=== PATIENT | male | born 1965 | race Caucasian/White ===

== ENCOUNTER 2020-04-08 11:19 | Outpatient (CLI) | payer MEDICARE, SELFPAY ==
[2020-04-09 15:48] LABS: Alpha 1 Antitrypsin 116 mg/dL (83-199)
== END 2020-04-08 11:20 | disposition home or self-care (01) ==
LOC: LAB 11:22
PROVIDERS: PCP Family Medicine; Visit Provider Internal Medicine Critical Care Medicine
DX: J45.909 Unspecified asthma, uncomplicated (principal)
CPT/HCPCS: 82103

== ENCOUNTER → 2021-03-26 17:38 | Outpatient (BNVA) | payer MEDICARE, SELFPAY | PROVIDERS: PCP Family Medicine; Visit Provider Registered Nurse Neonatal Intensive Care | DX: Z20.822 Contact with and (suspected) exposure to COVID-19 (principal) | CPT/HCPCS: 87635 ==

== ENCOUNTER → 2021-06-03 12:38 | Outpatient (BNVA) | payer MEDICARE, SELFPAY | PROVIDERS: PCP Family Medicine; Visit Provider Family Medicine Adult Medicine | DX: J11.1 Influenza due to unidentified influenza virus with other respiratory manifestations (principal) | CPT/HCPCS: 87400 ==

== ENCOUNTER 2021-11-11 08:28 | Inpatient (IN) | payer MEDICARE, SELFPAY ==
[2021-11-11] VITALS (44 sets, daily range): BP systolic 124–180; BP diastolic 42–108; PULSE 60–75; RESP 12–24; TEMP 36.6; O2SAT 93–97; BMI 59.3
--- NOTE | 2021-11-11 08:35 | CT_ITS ---
WS: [id number] CT HEAD TECHNIQUE: Noncontrast CT of the head obtained from the skullbase to the vertex. CLINICAL INFORMATION: Symptoms of Acute Stroke COMPARISON: None. DLP: 1012.[address] scans at [facility] use at least one of these dose optimization techniques: automated e xposure control; mA and/or kV adjustment per patient size (includes targeted exams where dose is matc hed to clinical indication); or iterative reconstruction. FINDINGS: No evidence of intracranial hemorrhage or mass effect. Ventricular system and basal cisterns are loredo nt. Subtle low-attenuation changes with loss of the normal carter-white differentiation in the LEFT pos terior temporal lobe and parietal occipital junction. This can be further evaluated with MRI. Evidenc e of chronic encephalomalacia in the inferior RIGHT cerebellum has a chronic appearance but new from 2012. Mastoid air cells well aerated. Mild mucosal thickening in the ethmoid air cells. Secretions in the L EFT maxillary sinus. Calcified osteoma LEFT frontal sinus. CT/CT head wo con* [id number] IMPRESSION: 1. No evidence of intracranial hemorrhage 2. Low-attenuation with loss of the normal carter-white differentiation in the L EFT posterior temporal and parietal occipital junction suspicious for acute to subacute ischemia. This can be further evaluated with MRI. 3. Mild mucosal thickening in the ethmoid air cells. Secretions in the LEFT ma xillary sinus. Notified Kalyan Payan DO at 11/11/2021 8:56 AM.
--- NOTE | 2021-11-11 08:35 | ECG_ITS ---
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 Measurements Intervals [place] Rate: 74 P: 60 MT: 158 QRS: -69 QRSD: 167 T: 82 QT: 487 QTc: 541 Interpretive Statements ELECTRONIC VENTRICULAR PACEMAKER ABNORMAL RHYTHM ECG No previous ECG available for comparison Electronically Signed On 11-11-2021 16:29:05 CDT by Arturo Howrad M.D. [id number]
--- NOTE | 2021-11-11 08:37 | ED_ITS ---
HPI - Neuro Symptoms/Deficit General: Chief Complaint: Neuro Symptoms/Deficit Stated Complaint: possible stroke Time Seen by Provider: 11/11/21 08:31 Source: patient Mode of arrival: ambulatory History of Present Illness: 56-year-old male arrives via EMS. When he first came in the room began talking patient became apparent quite quickly he was having a stroke stroke alert was called. According to EMS he was with his family this morning and then at 7:00 he suddenly be began to not be able to make sensible responses to simple questions. On arrival here he has expressive and receptive aphasia. He also has appears to have little bit of visual field deficit he does not have any particular weakness to his arms or legs however he is not able to follow commands well he does not understand commands as given to him he only commands they could get him to understand were to raise his leg lower extremities for me later he began to understand and speak better but his initial NIH score is 9. Time: 08:28 Last Observed Normal: 07:00 Timing confirmed by: family member Location: speech History of same: No Severity: severe Relieving factors: none Exacerbating factors: none Context: sudden onset On Anticoagulants: No Associated symptoms: Deny chest pain, cough, diaphoresis, fevers/chills, headache(s), anorexia, nausea, seizures, short of breath, syncope, tingling, vertigo, vomiting or weakness Review of Systems General: Reports: Other (Limited review of systems due to patient's condition) Const: Denies: diaphoresis Card: Denies: chest pain or syncope GI: Denies: nausea or vomiting Neuro: Denies: headache(s) or vertigo PFS ED PFSH: Medical History Cardiomyopathy CHF (congestive heart failure) COPD (chronic obstructive pulmonary disease) Enlarged prostate Fibromyalgia GERD (gastroesophageal reflux disease) Nausea and vomiting Obesity CONNIE (obstructive sleep apnea) Pacemaker Viral syndrome Surgical History H/O hernia repair History of biopsy of temporal artery History of skin surgery History of sleeve gastrectomy History of throat surgery History of tonsillectomy and adenoidectomy Family History Mother CAD (coronary artery disease) Father CAD (coronary artery disease) Other Zkpcp-[id number] deficiency Social History Smoking and tobacco status: current some day smoker Quit status (tobacco): has quit using tobacco Year quit tobacco: 2012 - 2PPD x 30 Years Former quit date comment: Used a non-og vape from 2012 - 2019 Second hand smoke exposure: Yes Alcohol intake: never Lives independently: Yes Household members: spouse Marital status: Current occupational status: disabled History of recent travel: No Current gender identity: Male NIH stroke score NIHSS: Level Of Consciousness - 1a: 0 Level Of Consciousness Questions - 1b: Neither Correct Level Of Consciousness Commands - 1c: One Correct Best Gaze - 2: Normal Visual Garrido - 3: Partial Hemianopia Facial Palsy - 4: Normal Motor Arm Right - 5: No Drift Motor Arm Left - 5: No Drift Motor Leg Right - 6: No Drift Motor Leg Left - 6: No Drift Limb Ataxia - 7: Absent Sensory - 8: Normal Best Language - 9: Severe Aphasia Dysarthia - 10: Mild/Moderate Dysarthia Extinction And Inattention - 11: 2 Score: Total Score: 9 Physical Exam Const: GENERAL APPEARANCE: cooperative and comfortable HENMT: COMMON NORMALS: normocephalic and atraumatic HEAD & SCALP: normoc ephalic and atraumatic Eye: COMMON NORMALS: Equal, round and reactive pupils present, conjunctivae normal and no scleral icterus CONJUNCTIVA: Yes conjunctivae normal PUPIL: Yes Equal, round and reactive pupils present Neck/C-Spine: COMMON NORMALS: full ROM, no lymphadenopathy, supple and no JVD Resp: COMMON NORMALS: normal respiratory effort, No retractions, No use of accessory muscles and clear to auscultation bilaterally AUSCULTATION: clear to auscultation bilaterally Cardio: COMMON NORMALS: no JVD, regular rate, regular rhythm and No murmurs present (Cardio) RATE: regular rate RHYTHM: regular rhythm GI: COMMON NORMALS: Soft to palpation and No hepatosplenomegaly present AUSCULTATION: Yes normoactive bowel sounds PALPATION: Yes Soft to palpation, No Tenderness to palpation present (GI), No Guarding due to palpation present (GI) and Yes No hepatosplenomegaly present Extremity: COMMON NORMALS: normal to inspection, capillary refill normal, no clubbing, cyanosis or edema, no calf tenderness and no pedal edema Neuro: OTHER: Expressive and receptive aphasia with a right visual field deficit Skin: COMMON NORMALS: no rashes or lesions noted GENERAL SKIN EXAM: no rashes or lesions noted Course Vital Signs: Vital signs: Vital Signs Temperature 97.9 F 11/11/21 08:43 Pulse Rate 60 11/11/21 14:19 Respiratory Rate 17 11/11/21 14:19 Blood Pressure 166/87 11/11/21 14:19 Pulse Oximetry 96 11/11/21 14:00 Oxygen Delivery Me thod 11/11/21 14:00 MDM - Neuro Symptoms/Deficit Medical Decision Making On arrival initial brief exam became apparent patient was having CVA. Stroke alert was called and he was rushed to the CT scanner Dr. Jackson responded immediately and assisted in his care. I initially tested him and had a stroke score of 9 Dr. Jackson a stroke score of 7 he did have a little bit of variation from pre and post CT scan which I think accounts for varying scores. We both agreed he should proceed with tPA. Shortly after we had begun the tPA family arrived they were in agreement as well patient also indicated a send to treatment. Patient does have a pacemaker so is unable to get an MRI we will get a CTA hospitalist has ordered that. Orders are written for admission to the ICU. Medical Records I reviewed the patient's medical records. Lab Data I reviewed the patient's lab results. : 11/11/21 08:46 11/11/21 08:[address] 11/11/21 08:35 IMPRESSION: 1. No evidence of intracranial hemorrhage 2. Low-attenuation with loss of the normal carter-white differentiation in the LEFT posterior temporal and parietal occipital junction suspicious for acute to subacute ischemia. This can be further evaluated with MRI. 3. Mild mucosal thickening in the ethmoid air cells. Secretions in the LEFT maxillary sinus. Notified Kalyan Payan DO at 11/11/2021 8:56 AM. Chest X-Ray 11/11/21 09:10 IMPRESSION: No acute cardiopulmonary abnormality. Head/Neck CTA 11/11/21 10:59 IMPRESSION: Exam is somewhat limited due to beam hardening artifact from body habitus. 1. No significant ICA stenosis bilaterally. 2. Both vertebral arteries are patent. 3. Basilar artery is patent. Normal vascularity to the FINGERPRINT CLASSIFIER territory bilaterally. 4. Normal vascularity to the TAMIE and MCA territories bilaterally. No evidence of proximal flow limiting stenosis. 5. Stable area of subtle low-attenuation LEFT posterior temporal lobe appears unchanged suspicious for subacute ischemia but nonspecific. Recommend interval follow-up to assess for change. Slightly decreased vascularity in this area. 6. Evidence of chronic infarct in the RIGHT inferior cerebellum with encephalomalacia. 7. No other suspicious findings. Laboratory Results WBC 10.0 10^3/uL (4.0-10.0) 11/11/21 08:46 RBC 5.50 10^6/uL (4.1-5.3) H 11/11/21 08:46 Hgb 15.3 g/dL (11.7-16.6) 11/11/21 08:46 Hct 49.0 % (42.0-52.0) 11/11/21 08:46 MCV 89.1 fl (80-94) 11/11/21 08:46 MCH 27.8 pg (28.0-34.0) L 11/11/21 08:46 MCHC 31.2 g/dL (30.0-36.0) 11/11/21 08:46 RDW 14.0 % (12.1-15.1) 11/11/21 08:46 Plt Count 267 10^3/cmm (130-400) 11/11/21 08:46 MPV 9.7 fL (7.4-10.4) 11/11/21 08:46 Neut % (Auto) 68.1 % 11/11/21 08:46 Lymph % (Auto) 20.4 % 11/11/21 08:46 Platte % (Auto) 9.4 % 11/11/21 08:46 Eos % (Auto) 1.2 % 11/11/21 08:46 Baso % (Auto) 0.5 % 11/11/21 08:46 Neut # (Auto) 6.82 10^3/uL (1.8-7.7) 11/11/21 08:46 Lymph # (Auto) 2.0 10^3/uL (0.8-4.8) 11/11/21 08:46 Platte # (Auto) 0.9 10^3/uL (0.2-0.9) 11/11/21 08:46 Eos # (Auto) 0.1 10^3/uL (0.0-0.8) 11/11/21 08:46 Baso # (Auto) 0.1 10^3/uL (0.0-0.1) 11/11/21 08:46 Nucleated RBC % (auto) 0 % 11/11/21 08:46 Nucleated RBCs # 0.0 /100WBC 11/11/21 08:46 PT 13.20 SECONDS (12.1-14.9) 11/11/21 08:46 INR 0.97 (0.8-1.2) 11/11/21 08:46 APTT 31.4 SECONDS (23.9-36.7) 11/11/21 08:46 Sodium 138 mmol/L (136-145) 11/11/21 08:46 Potassium 3.8 mmol/L (3.5-5.1) 11/11/21 08:46 Chloride 101 mmol/L (98-107) 11/11/21 08:46 Carbon Dioxide 29 mmol/L (22-29) 11/11/21 08:46 Anion Gap 11.8 (5-19) 11/11/21 08:46 BUN 7 mg/dL (6-20) 11/11/21 08:46 Creatinine 0.7 mg/dL (0.7-1.2) 11/11/21 08:46 GFR Calculation 117.5 mL/min (90-130) 11/11/21 08:46 Glucose 69 mg/dL (65-115) 11/11/21 08:46 POC Glucose 72 mg/dL (70-110) 11/11/21 08:46 Calculated Osmolality 282 mOsm/kg (285-295) L 11/11/21 08:46 Calcium 9.0 mg/dL (8.5-10.5) 11/11/21 08:46 Total Bilirubin 0.5 mg/dL (0.15-1.2) 11/11/21 08:46 AST 15 U/L (0-40) 11/11/21 08:46 ALT 16 U/L (0-41) 11/11/21 08:46 Alkaline Phosphatase 112 U/L (40-130) 11/11/21 08:46 Total Protein 7.3 g/dL (6.6-8.7) 11/11/21 08:46 Albumin 3.9 g/dL (3.5-5.2) 11/11/21 08:46 Globulin 3.4 g/dL (1.3-4.6) 11/11/21 08:46 TSH 1.90 uIU/mL (0.27-4.20) 11/11/21 08:46 Urine Color Yellow (Yellow) 11/11/21 09:00 Urine Appearance Clear (CLEAR) 11/11/21 09:00 Urine pH 6.5 (5-7) 11/11/21 09:00 Ur Specific Aiken 1.010 (1.005-1.030) 11/11/21 09:00 Urine Protein Neg (Negative) 11/11/21 09:00 Urine Glucose (UA) Norm (Normal) 11/11/21 09:00 Urine Ketones Negative (Negative) 11/11/21 09:00 Urine Blood Neg (Negative) 11/11/21 09:00 Urine Nitrate Negative (Negative) 11/11/21 09:00 Urine Bilirubin Neg (Negative) 11/11/21 09:00 Urine Urobilinogen Norm mg/dL (Negative) 11/11/21 09:00 Ur Leukocyte Esterase Negative (Negative) 11/11/21 09:00 Urine Opiates Screen Negative ng/mL (Negative) 11/11/21 09:00 Ur Barbiturates Screen Negative ng/mL (Negative) 11/11/21 09:00 Ur Phencyclidine Scrn Negative ng/mL (Negative) 11/11/21 09:00 Ur Amphetamines Screen Negative ng/mL (Negative) 11/11/21 09:00 Phenobarbital 2.4 ug/mL (10-30) L 11/11/21 08:46 U Benzodiazepines Scrn Negative ng/mL (Negative) 11/11/21 09:00 Urine Cocaine Screen Negative ng/mL (Negative) 11/11/21 09:00 U Marijuana (THC) Screen Negative ng/mL (Negative) 11/11/21 09:00 Discharge Plan Discharge Patient Disposition: Admitted As Inpatient Admit Provider: Elo Obrien Clinical Impression: CVA (cerebral vascular accident), Left middle cerebral artery stroke, CONNIE (obstructive sleep apnea), Cardiomyopathy Condition: Stable Coding Level of Care Code ED Molded Goods Operator for Chg Lelo
[2021-11-11 08:50] LABS: Glucose Point of Care 72 mg/dL (70-110)
[2021-11-11 09:00] LABS: Basophils # 0.1 10^3/uL (0.0-0.1); Basophils % 0.5 %; Eosinophils # 0.1 10^3/uL (0.0-0.8); Eosinophils % 1.2 %; Hemoglobin 15.3 g/dL (11.7-16.6); Lymphocytes % 20.4 %; Mean Corpuscular HGB Conc 31.2 g/dL (30.0-36.0); Mean Corpuscular Hemoglobin 27.8 pg (28.0-34.0); Mean Corpuscular Volume 89.1 fl (80-94); Mean Platelet Volume 9.7 fL (7.4-10.4); Monocytes # 0.9 10^3/uL (0.2-0.9); Monocytes % 9.4 %; Neutrophils # 6.82 10^3/uL (1.8-7.7); Neutrophils % 68.1 %; Nucleated Red Blood Cells % 0 %; Platelet Count 267 10^3/cmm (130-400)
--- NOTE | 2021-11-11 09:10 | XRR_ITS ---
PROCEDURE INFORMATION: Exam: XR Chest Exam date and time: 11/11/2021 9:14 AM Age: 56 years old Clinical indication: Other: Stroke like symptoms; Additional info: CVA TECHNIQUE: Imaging protocol: Radiologic exam of the chest. Views: 1 view. COMPARISON: CT chest w con* [id number] 04/21/2015 1:20 PM FINDINGS: Tubes, catheters and devices: Cardiac rhythm maintenance device is in place. Lungs: Unremarkable. No consolidation. Pleural spaces: Unremarkable. No pleural effusion. No pneumothorax. Heart/Mediastinum: Cardiomegaly Bones/joints: Unremarkable. XR/XR chest 1V portable [id number] IMPRESSION: No acute cardiopulmonary abnormality.
[2021-11-11 09:13] LABS: INR 0.97 (0.8-1.2)
[2021-11-11 09:14] LABS: Partial Thromboplastin Time 31.4 SECONDS (23.9-36.7)
[2021-11-11 09:15] LABS: Alanine Aminotransferase 16 U/L (0-41); Albumin Level 3.9 g/dL (3.5-5.2); Alkaline Phosphatase 112 U/L (40-130); Anion Gap 11.8 (5-19); Aspartate Amino Transferase 15 U/L (0-40); Blood Urea Nitrogen 7 mg/dL (6-20); Carbon Dioxide 29 mmol/L (22-29); Chloride 101 mmol/L (98-107); Globulin 3.4 g/dL (1.3-4.6); Glomerular Filtration Rate 117.5 mL/min (90-130); Glucose 69 mg/dL (65-115); Osmolality Calculated 282 mOsm/kg (285-295); Potassium 3.8 mmol/L (3.5-5.1); Sodium 138 mmol/L (136-145); Total Bilirubin 0.5 mg/dL (0.15-1.2); Total Protein 7.3 g/dL (6.6-8.7)
[2021-11-11 09:41] LABS: Add Urine Microscopic? NO; Charge for UA Resulting for Rev
--- NOTE | 2021-11-11 10:12 | P.HP_ITS ---
Providers/Chief Complaint Admitting Physician: Joel Obrien MD Primary Care Provider: Gabby Pickens DO Chief Complaint: possible stroke History of Present Illness Gabriel Blair is a 56 year old male who presents to the emergency department, with strokelike symptoms. Apparently he was dropping his son off, at his work when he had acute onset of aphasia/word salad. reports he also had some issues with his right upper extremity, seemingly clumsy with it. They called EMS immediately, and headed to the emergency department. At the emergency department a stroke alert was initiated, and the emergency department physician and neurologist responded promptly, determining he was a tPA candidate. Initial NIHSS stroke scale was 9. tPA was initiated following CT scan demonstrating no hemorrhage. Patient currently reports he feels like he is doing better. Family reports his speech is smoother but he is still having some issues with receptive language. He states he has a very mild headache but no nausea. Family reports that recently he had been seen by his primary care provider and taken off [facility], as he was tired, weak, and had a significantly low blood pressure. They report he has not had a past history of atrial fibrillation. They report he has never had coronary stenting. It is unclear from the family why he has cardiomyopathy, but they report his EF is 10% and he has had a pacemaker defibrillator placed in the past. He has had no recent fevers. However, he also recently got some amoxicillin and nystatin secondary to possibility of infection with his weakness he saw his primary care provider for. History is obtained from the patient, who is somewhat limited in his ability to give it as well as his and son. There was some concern the patient was on phenobarbital as this was in his bag of medicines. However, upon looking at the bottle it is for his dog and he does not take it personally. Review of Systems General: Reports: 10 or more systems reviewed and unremarkable except in HPI and below Const: Reports: fatigue; Denies: fever(s) or chills Eyes: Denies: change in vision ENMT: Denies: throat pain Card: Denies: chest pain Resp: Denies: dyspnea GI: Denies: abdominal pain, nausea, vomiting, hematemesis, hematochezia or melena : Denies: flank pain Musc: Denies: neck pain Skin/Breast: Denies: rash Neuro: Reports: headache(s), lack of coordination and difficulty communicating thoughts Psych: Denies: anxiety or depression Endo: Denies: polyuria Christopher/Lymph: Denies: easy bruising All/Imm: Denies: urticaria Medications/Allergies Home Medications Medication Instructions Recorded Confirmed Last Taken Type amlodipine 5 mg tablet 5 mg PO DAILY 06/12/19 09/22/21 Unknown History cetirizine 10 mg capsule (Zyrtec) 10 mg PO DAILY 06/12/19 09/22/21 Unknown History famotidine 40 mg tablet 40 mg PO DAILY 06/12/19 09/22/21 Unknown History fluticasone fur. 100 mcg-umeclid 1 inh inhalation DAILY 06/12/19 09/22/21 Unknown History 62.5 mcg-vilant 25 mcg inhalat.powder (Trelegy Ellipta) montelukast 10 mg tablet 10 mg PO DAILY 06/12/19 09/22/21 Unknown History (Singulair) pregabalin 100 mg capsule (Lyrica) 100 mg PO BID 06/12/19 09/22/21 Unknown History sertraline 25 mg tablet 25 mg PO DAILY 06/12/19 09/22/21 Unknown History carvedilol 12.5 mg tablet (Coreg) 25 mg PO BID 03/26/21 09/22/21 Unknown History furosemide 40 mg tablet (Lasix) 40 mg PO DAILY PRN edema 09/22/21 09/22/21 Unknown History ondansetron HCl 8 mg tablet 8 mg PO Q8H PRN nausea and 09/22/21 09/22/21 Unknown Rx vomiting #10 tabs pantoprazole 40 mg tablet,delayed 40 mg PO DAILY acid reflux #30 tabs 09/22/21 09/22/21 Unknown Rx release potassium chloride PO PRN 09/22/21 09/22/21 Unknown History sacubitril 49 mg-valsartan 51 mg 1 tab PO BID 09/22/21 09/22/21 Unknown History tablet (Entresto) Allergies Allergy/AdvReac Type Severity Reaction Status Date / Time No Known Allergies Allergy Verified 09/22/21 08:57 PFSH Acute PFSH: Medical History Cardiomyopathy CHF (congestive heart failure) COPD (chronic obstructive pulmonary disease) Enlarged prostate Fibromyalgia GERD (gastroesophageal reflux disease) Nausea and vomiting Obesity CONNIE (obstructive sleep apnea) Pacemaker Viral syndrome Surgical History H/O hernia repair History of biopsy of temporal artery History of skin surgery History of sleeve gastrectomy History of throat surgery History of tonsillectomy and adenoidectomy Family History Mother CAD (coronary artery disease) Father CAD (coronary artery disease) Other Vfnxb-7-olleebhxvla deficiency Social History Smoking and tobacco status: current some day smoker Quit status (tobacco): has quit using tobacco Year quit tobacco: 2012 - 2PPD x 30 Years Former quit date comment: Used a non-og vape from 2012 - 2019 Second hand smoke exposure: Yes Alcohol intake: never Lives independently: Yes Household members: spouse Marital status: Current occupational status: disabled History of recent travel: No Current gender identity: Male Vitals/I&O/Wt Last Vital Signs Temp 97.9 F 11/11/21 08:43 Pulse 64 11/11/21 10:00 Resp 16 11/11/21 10:00 BP 139/88 11/11/21 10:00 Pulse Ox 95 11/11/21 10:00 O2 Del Method 11/11/21 08:51 Weight last 48 hrs Weight 209.56 kg Physical Exam Narrative: General exam is a morbidly obese white male, who has some issues with receptive language but is able to talk in full sentences. HEENT: Atraumatic and normocephalic. Pupils equally round. Previous cataract surgery/lens replacement is noted. Oropharynx is clear. Neck is supple no lymphadenopathy or thyromegaly Cardiovascular regular rate and rhythm, no murmur, heart sounds distant Lungs clear to auscultation bilaterally. No wheezes or crackles Abdomen is soft, positive bowel sounds. Obese. No obvious organomegaly but exam limited. Umbilical hernia is noted, with some scabbing. No evidence of cellulitis or current infection. exams deferred Extremities no cyanosis clubbing. Trace edema is noted. Skin see findings under abdomen Neuro: Currently some issues with receptive language. Speech is smoother without slurring according to family. Does not appear to have any neglect. Difficult to elicit any focal weakness from side to side. NIHSS score of 9 on arrival to the emergency department. I did not get him up to ambulate him. There was concern about a small visual field deficit on previous exam, but it is hard for me to appreciate currently. Data : 11/11/21 08:46 11/11/21 08:46 Other Labs: Chest x-ray demonstrates pacemaker, no infiltrate EKG demonstrates a ventricularly paced rhythm Head CT demonstrates no bleed. Low-attenuation area left posterior temporal and parietal occipital junction suspicious for acute/subacute ischemia. INR 0.97 LFTs within normal limits Calcium 9.0 Urinalysis pending Phenobarbital level 2.4 A&P Assessment and plan (1) CVA (cerebral vascular accident): Patient presents with CVA, within the tPA window. He received tPA and symptomatology is improving. Admission to ICU MRI with MRI will not be possible secondary to his pacemaker. We will clarify with neurology whether CTA of head and neck should be obtained, or just carotid ultrasound. As he has received tPA, no aspirin/antiplatelet agents or anticoagulants today. Consider initiation of aspirin and/or Plavix tomorrow Permissive hypertension. Hold medicines currently. If blood pressure exceeds guidelines post tPA(180/105) nurse to call physician, urine labetalol. If needed consider nicardipine drip Lipitor 40 mg daily Therapy consultations Pacemaker investigation for arrhythmia Check echocardiogram Telemetry IV fluids 50 cc an hour. Lower rate secondary to severe cardiomyopathy report ed. Status: Acute (2) Cardiomyopathy: Patient's family reports significant cardiomyopathy with EF of 10%. It does not sound like he has had to have any stenting, and it is unclear if this is ischemic cardiomyopathy or not. Request records from trading analyst in [place] Pacemaker investigation Echocardiogram In face of acute CVA status post tPA will need to hold his Entresto, carvedilol currently. Try to restart when appropriate. Status: Acute (3) Small airways disease: DuoNeb as needed Status: Acute Plan Umbilical hernia. No evidence of incarceration on exam. Multiple other medical problems as outlined in past medical history Full code SCDs, DVT pharmacologic contraindicated currently as he just received tPA. After 24 hours will likely initiate. Attestations Medical Necessity Statement*: Will need greater than 2 midnight stay for evaluation and treatment of CVA with tPA with need for ICU care Coding Level of Care Code Acute Electronic Parts Designer for Chg Fwd Diagnoses CVA (cerebral vascular accident) I63.9 Cardiomyopathy I42.9 Small airways disease J98.4
--- NOTE | 2021-11-11 10:19 | USCV_ITS ---
Gabriel Blair Age: 56 Gender: M : 1965 Exam Date: 11/11/2021 10:41 Ordering Phys: Joel Obrien MD Technologist: Jimmy Barriga Exam Location: [facility] [place] Indication: Cardiomyopathy BP: / HR: 59 Rhythm: Sinus Technical Quality: Very technically difficult study MEASUREMENTS (Male / Female) Normal Values 2D ECHO LV Ejection Fraction MOD 2C 57.0 % LV Ejection Fraction 2C AL 57.2 % DOPPLER AV Peak Velocity 130.0 cm/s LVOT Peak Velocity 78.0 cm/s MV Area PHT 5.0 cm squared Mitral E to A Ratio 1.2 MV E' Velocity 94.0 cm/s TR Peak Velocity 209.0 cm/s TR Peak Gradient 17.5 mmHg TV Peak E Velocity 69.0 cm/s Right Atrial Pressure 3.0 mmHg Pulmonary Artery Systolic Pressu 20.5 mmHg FINDINGS Left Ventricle Probably moderate decreased left ventricle systolic function. Left ventricular ejection fraction visually estimated at about 40%. Right Ventricle Right ventricle not well visualized. Right Atrium Right atrium not well visualized. Left Atrium Left atrium not well visualized. Mitral Valve Mitral valve not well visualized. Aortic Valve Aortic valve not well visualized. No aortic valve stenosis. Tricuspid Valve Tricuspid valve not well visualized. Pulmonic Valve Pulmonic valve not well visualized. Pericardium No pericardial effusion. Aorta Aorta not well visualized. IVC Inferior vena cava not visualized. CONCLUSIONS 1. This is a technically difficult study inspite of Optison. 2. Probably moderate decreased left ventricle systolic function. Left ventricular ejection fraction visually estimated at about 40%. 3. Comparison to previous study dated 08/21/2013, is not possible. Rajani Ireladn MD (Electronically Signed) Final Date: 11 November 2021 15:59 S
[2021-11-11] MEDS: sodium chloride 0.9% 1,000 ML 100 ML IV (10:26)
[2021-11-11 10:33] LABS: Bilirubin Urine Neg (Negative); Blood Urine Neg (Negative); Glucose Urine UA Norm (Normal); Ketones Urine Negative (Negative); Leukocyte Esterase Urine Negative (Negative); Nitrate Urine Negative (Negative); Protein Urine Neg (Negative); Urine Appearance Clear (CLEAR); Urine Color Yellow (Yellow); Urobilinogen Urine Norm (Negative); pH Urine 6.5 (5-7)
--- NOTE | 2021-11-11 10:39 | P.PNCC_ITS ---
Stroke Alert Activation ED Arrival Date: 11/11/21 ED Arrival Time: 08:28 ED Physican at Bedside: 08:28 Last Known Normal/at Baseline: 1-2 hours ago Other Last Known Well Infomation: [facility] picked up this 56-year-old man at his home. They found him in the truck where his had called 911 when she witnessed sudden onset of change in speech and profound confusion. They arrived to find him globally aphasic. They could not find any focal weakness. They called dispatch and asked dispatch to alert the stroke team, which did not occur. They arrived unannounced at the emergency department at 08 34 and the patient was rushed to CAT scan at the same time that stroke alert was activated. I arrived as the patient was pulling out of CAT scan and while they were wheeling him to room 10 I interviewed the EMS and learned that they spoke directly with the patient's and that she had witnessed onset of symptoms. She was in the truck with the patient when they arrived to pick him up. He has no previous history of stroke and was not on any blood thinners. His blood pressure was 173/94.On examination he had mixed aphasia, receptive worse than expressive. He had a right visual field cut. He had no other focal findings. No significant deficit and there were no contraindications to tPA. I did my best to express to him that we were treating him with a clot Buster and he received a bolus at 09 51, 17 minutes after arrival. The patient's arrived and I discussed with her the cause of stroke. We went over the stroke booklet and I showed her the location on the brain and the artery involved and took time to answer questions. Dr. Payan and I shared in the care of the patient from arrival until bolus. Stroke Alert Activated by: at the door Stroke Alert Activation Time: 08:34 Stroke MD @ Bedside Time: 08:40 NIH stroke score NIHSS: Level Of Consciousness - 1a: 0 Level Of Consciousness Questions - 1b: Neither Correct Level Of Consciousness Commands - 1c: One Correct Best Gaze - 2: Normal Visual Garrido - 3: Complete Hemianopia Facial Palsy - 4: Normal Motor Arm Right - 5: No Drift Motor Arm Left - 5: No Drift Motor Leg Right - 6: No Drift Motor Leg Left - 6: No Drift Limb Ataxia - 7: Absent Sensory - 8: Normal Best Language - 9: Severe Aphasia Dysarthia - 10: Normal Extinction And Inattention - 11: 0 Score: Total Score: 7 Stroke Alert Data/Treatment CT Impression: His CT scan of the head was reviewed. There is a loss of carter- white differentiation in the posterior aspect of the left hemisphere conforming to the posterior branch of the left middle cerebral artery and likely related to acute ischemia. CT head: 1.? No evidence of intracranial hemorrhage 2.? Low-attenuation with loss of the normal carter-white differentiation in the LEFT posterior temporal and parietal occipital junction suspicious for acute to subacute ischemia. This can be further evaluated with MRI. 3.? Mild mucosal thickening in the ethmoid air cells. Secretions in the LEFT maxillary sinus. ? Notified Kalyan Payan DO at 11/11/2021 8:56 AM. ? Signed By: Navin Aguirre MD Signed Date/Time: 11/11/21 tPA Started Time: tPA Started - Time: 09:51 tPA Admin Prior to Arrival: No Patient & Family Educated on: Cause of Stroke, Risk Factors, Treament Plan, Stroke Education Booklet and tPA Risks/Benefits Critical Care Time Critical Care Time: 30 - 74 mins A&P Assessment and plan (1) Left middle cerebral artery stroke: Morbidly obese 56-year-old man with acute left middle cerebral artery stroke, posterior branch, with receptive greater than expressive aphasia and visual field cut consistent with a posterior branch left middle cerebral artery stroke. He has early changes of carter-white differentiation loss on CAT scan consistent with an acute stroke. His time of onset was witnessed. Admit to ICU. Plan on MRI tomorrow with MRA. Monitor for atrial fibrillation. Discussed with Dr. Fregoso and with Dr. Obrien. Status: Acute Coding Level of Care Code Acute Front Desk Administrator for Sue Lind Diagnoses Left middle cerebral artery stroke I63.512
[2021-11-11 10:41] LABS: Amphetamines Screen Urine Negative (Negative); Barbiturates Screen Urine Negative (Negative); Benzodiazepines Screen Urine Negative (Negative); Cocaine Screen Urine Negative (Negative); Opiate Screen Urine Negative (Negative); PCP Screen Urine Negative (Negative); THC Screen Urine Negative (Negative)
--- NOTE | 2021-11-11 10:59 | CT_ITS ---
WS: [id number] CTA HEAD AND NECK TECHNIQUE: Contrast enhanced CTA of the head and neck with coronal and sagittal reformatted images an d maximum intensity projection (MIP) images. NASCET criteria utilized. CLINICAL INFORMATION: CVA COMPARISON: CT November 11, 2021 DLP: 1222.[address] scans at [facility] use at least one of these dose optimization techniques: automated e xposure control; mA and/or kV adjustment per patient size (includes targeted exams where dose is matc hed to clinical indication); or iterative reconstruction. FINDINGS: Some images are degraded due to body habitus with beam hardening artifact. Venous contamina tion degrades some images. RIGHT: RIGHT common carotid artery is patent. Retropharyngeal course to the RIGHT distal common carot id artery and cervical ICA. No significant RIGHT ICA stenosis. RIGHT ICA is patent to the skull base. LEFT: LEFT common carotid artery is patent. No significant LEFT ICA stenosis. LEFT ICA is patent to t he skull base. Both vertebral arteries are patent. Proximal basilar artery is patent. Normal vascularity to the SUPERVISOR SAWMILL territory bilaterally. Both ICAs are patent at the skull base. Mild cavernous carotid calcification. Patent anterior communi cating artery. Normal vascularity to the TAMIE territory. Normal vascularity to the MCA territory bilat erally. Both M1 segments are patent. No evidence of flow-limiting proximal stenosis. Persistent subtle area of decreased attenuation in the LEFT posterior temporal lobe may represent sub acute ischemia but nonspecific. Slightly decreased vascularity in this area compared to the RIGHT mckayla e. Evidence of chronic infarcts in the RIGHT inferior cerebellum with encephalomalacia. Normal dural venous sinuses. CT/CT angio headneck* [id number] IMPRESSION: Exam is somewhat limited due to beam hardening artifact from body h abitus. 1. No significant ICA stenosis bilaterally. 2. Both vertebral arteries are patent. 3. Basilar artery is patent. Normal vascularity to the SUPERVISOR SAWMILL territory bilateral ly. 4. Normal vascularity to the TAMIE and MCA territories bilaterally. No evidence of proximal flow limiting stenosis. 5. Stable area of subtle low-attenuation LEFT posterior temporal lobe appears unchanged suspicious for subacute ischemia but nonspecific. Recommend interval follow-up to assess for change. Slightly decreased vascularity in this area. 6. Evidence of chronic infarct in the RIGHT inferior cerebellum with encephalo malacia. 7. No other suspicious findings.
[2021-11-11] MEDS: perflutren protein-a microsphr 0.22 mg/mL SDV 3 mL IV (11:01)
--- NOTE | 2021-11-11 11:51 | PC.PHAR ---
pts brought in pts medication bottles-pts states the amlodipine was put on hold 11/02/21-pts states the pt takes the lasix and kcl prn-lasix filled 10/21/21 40mg daily and kcl filled 10/21/21 20meq daily-amoxil 1000mg q8h filled 11/03/21 pts states pt is taking 1000mg bid and nystatin maría 5ml qid filled on 11/03/21 pts states pt takes 5ml bid-
--- NOTE | 2021-11-11 12:41 | PC.CHAP ---
Pastoral Care Encounter/Spiritual Assessment Type of Contact [] Declined jowl trimmer visit [] Patient/Family/Request visit [] Outpatient visit [] Follow-up visit [] Physician referral [] Code/Alert [x] Routine visit [] Staff referral [] Actively dying [] Patient sleeping [x] Family support [] [] Out of room [] Palliative care [] [] Receiving care in room [] Pre-surgical visit [] Trauma [] Long length of stay [x] ICU visit [] Other: Relational/Emotional Strength [] Patient feels connected with others/family/visitors/staff [] Distress [] Loneliness/isolation [] Abandonment Spirituality of Patient [] Person of Nahomy [] Attends Restoration of their Nahomy [] Believes in Prayer [] Reads Bible or Jehovah'S Witness materials [] There are Spiritual issues to be addressed Infection Prevention Practitioner Interventions [x] Prayer [] Active listening [] Non-anxious presence [] Spiritual/emotional support [] Crisis/trauma care [] Spiritual counseling [] Bereavement support [] Provided bereavement packet [] Provided Bible/devotional materials [] Provided toy/stuffed animal, coloring book to patient or family member [] Provided Communion [] Anointing/[place] [] Salvation [x] Completed spiritual assessment [] Other: Impact on Illness or Injury [] Angry [] Fearful [] Anxious [] Often cries [] Exhaustion [] Unable to work [] Unable to attend restoration [] Unable to walk/stand [] Unable to read [] Unable to drive [] Unable to eat/drink [] Unable to sleep [] Unable to be with family [] Patient intubated [] Other: Summary Time spent with patient
[2021-11-11] MEDS: iohexol 350 mg/mL 100 mL Btl IV (13:34)
[2021-11-11] MEDS: labetalol 5 mg/mL SDV 20mL 10 MG IVP (15:21)
[2021-11-11] MEDS: carvedilol 25 mg Tablet PO (17:39)
[2021-11-11] MEDS: pregabalin 50 mg Capsule PO (17:39)
[2021-11-11] MEDS: famotidine 20 mg Tablet PO (17:39)
[2021-11-11] MEDS: montelukast sodium 10 mg Tablet PO (21:58)
[2021-11-11] MEDS: atorvastatin 40 mg Tablet PO (21:58)
[2021-11-12] VITALS (56 sets, daily range): BP systolic 126–167; BP diastolic 59–97; PULSE 59–86; RESP 9–25; TEMP 36.5–36.6; O2SAT 87–97
[2021-11-12 05:37] LABS: Basophils # 0.1 10^3/uL (0.0-0.1); Basophils % 0.6 %; Eosinophils # 0.1 10^3/uL (0.0-0.8); Eosinophils % 0.9 %; Hematocrit 46.1 % (42.0-52.0); Hemoglobin 14.4 g/dL (11.7-16.6); Lymphocytes # 1.9 10^3/uL (0.8-4.8); Lymphocytes % 19.3 %; Mean Corpuscular HGB Conc 31.2 g/dL (30.0-36.0); Mean Corpuscular Hemoglobin 27.4 pg (28.0-34.0); Mean Corpuscular Volume 87.6 fl (80-94); Mean Platelet Volume 9.9 fL (7.4-10.4); Monocytes # 0.8 10^3/uL (0.2-0.9); Monocytes % 8.3 %; Neutrophils # 6.76 10^3/uL (1.8-7.7); Neutrophils % 70.5 %; Nucleated Red Blood Cells % 0 %; Platelet Count 264 10^3/cmm (130-400); Red Blood Count 5.26 10^6/uL (4.1-5.3); Red Cell Distribution Width 14.2 % (12.1-15.1); White Blood Count 9.6 10^3/uL (4.0-10.0)
[2021-11-12 05:59] LABS: Alanine Aminotransferase 13 U/L (0-41); Albumin Level 3.7 g/dL (3.5-5.2); Alkaline Phosphatase 104 U/L (40-130); Aspartate Amino Transferase 12 U/L (0-40); Blood Urea Nitrogen 8 mg/dL (6-20); Calcium 8.8 mg/dL (8.5-10.5); Carbon Dioxide 29 mmol/L (22-29); Chloride 102 mmol/L (98-107); Chol HDL Ratio 5.31 mg/dL (1.0-5.00); Cholesterol 154 mg/dL (0-200); Globulin 3.3 g/dL (1.3-4.6); Glomerular Filtration Rate 140.4 mL/min (90-130); Glucose 93 mg/dL (65-115); HDL Cholesterol 29 mg/dL (60-100); LDL Cholesterol Calculated 103 mg/dL (50-129); LDL HDL Ratio 3.55 RATIO (0.00-3.22); Osmolality Calculated 286 mOsm/kg (285-295); Sodium 139 mmol/L (136-145); Total Bilirubin 0.6 mg/dL (0.15-1.2); Triglycerides 110 mg/dL (0-150)
[2021-11-12 07:12] LABS: Estmated Average Glucose 123; Hemoglobin A1C 5.9 % (4.0-6.0)
--- NOTE | 2021-11-12 07:27 | PC.NURSE ---
Shift Note Frequent safety and comfort rounds continue. Orders and/or nursing care completed as indicated. Patient monitored for response to intervention and treatment(s). Education provided includes NIH stroke scale. Patient and verbalized understanding of teaching. Patient remains on 2LNC and is oriented to self, place and situation. He periodically remembers the month and date. No deficits noted to extremities, patient still has mild aphasia. No wounds or skin issues noted at this time. Will continue to monitor.
--- NOTE | 2021-11-12 08:19 | PM.PN ---
Subjective Subjective: Gabriel reports he is doing okay. reports his language seems little bit better. He is still aphasic enough he cannot tell me his name, but he can tell me his 's name. He denies any pain or shortness of breath. Medications: Reviewed: Yes Vitals/I&O/Wt Last Vital Signs Temp 97.9 F 11/12/21 02:00 Pulse 63 11/12/21 06:00 Resp 14 11/12/21 06:00 BP 166/97 11/12/21 04:00 Pulse Ox 95 11/12/21 03:20 O2 Del Method 11/11/21 20:00 O2 Flow Rate 2 11/11/21 20:00 11/11/21 11/12/21 11/12/21 22:59 06:59 14:59 Intake Total 360 / 460 650 / 1110 Output Total 400 / 700 550 / 1250 Balance -40 / -240 100 / -140 Weight last 48 hrs Weight 209.56 kg Physical Exam Narrative: General exam no distress Neuro: Moves all extremities equally. No facial droop. Still with some aphasia, although less receptive language deficits. Neurology still detects a visual field cut. Neck is supple no lymphadenopathy or thyromegaly Cardiovascular regular rate and rhythm, no murmur, heart sounds distant Lungs clear to auscultation bilaterally. No wheezes or crackles Abdomen is soft, positive bowel sounds. Obese. No obvious organomegaly Umbilical hernia is noted, with some scabbing. No evidence of cellulitis or current infection. Extremities no cyanosis clubbing. Trace edema is noted. Skin see findings under abdomen Data : 11/12/21 04:48 11/12/21 04:48 A&P Assessment and plan (1) CVA (cerebral vascular accident): Patient presents with CVA, within the tPA window. He received tPA 11/12 and symptomatology improved although did not completely resolve. CTA demonstrates no thrombus Awaiting repeat CT scan without contrast today for follow-up after tPA 24 hours after tPA initiate Plavix and aspirin Continue statin Rehabilitation services to see today Probably home tomorrow morning Hopefully can restart his cardiac medicine tonight. Pacemaker investigation for arrhythmia Echocardiogram demonstrates EF around 40%, difficult study, no obvious thrombus Telemetry Status: Acute (2) Cardiomyopathy: Patient's family reports significant cardiomyopathy with EF of 10%. It does not sound like he has had to have any stenting, and it is unclear if this is ischemic cardiomyopathy or not. 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 No evidence of incarceration on exam. Multiple other medical problems as outlined in past medical history Full code SCDs, DVT pharmacologic contraindicated currently as he just received tPA. After 24 hours will likely initiate. Attestations Medical Necessity Statement*: Needs continued hospitalization for initiation of rehabilitation services, close monitoring following CVA in which the patient received tPA. Coding Level of Care Code Acute Skilled Labor for Sue Lind Diagnoses CVA (cerebral vascular accident) I63.9 Cardiomyopathy I42.9 Small airways disease J98.4
[2021-11-12] MEDS: famotidine 20 mg Tablet PO ×2 (08:56→18:00)
[2021-11-12] MEDS: sacubitril/valsartan 24-26 mg Tablet 2 EACH PO ×2 (08:56→17:59)
[2021-11-12] MEDS: tamsulosin 0.4 mg Capsule PO (08:56)
[2021-11-12] MEDS: pregabalin 50 mg Capsule PO ×2 (08:56→18:00)
[2021-11-12] MEDS: sertraline 100 mg Tablet PO (08:56)
[2021-11-12] MEDS: carvedilol 25 mg Tablet PO ×2 (08:56→18:00)
--- NOTE | 2021-11-12 09:00 | CT_ITS ---
WS: [id number] CT HEAD TECHNIQUE: Noncontrast CT of the head obtained from the skullbase to the vertex. CLINICAL INFORMATION: follow up TPA, CVA COMPARISON: CT November 11, 2021 DLP: 2006.[address] scans at [facility] use at least one of these dose optimization techniques: automated e xposure control; mA and/or kV adjustment per patient size (includes targeted exams where dose is matc hed to clinical indication); or iterative reconstruction. FINDINGS: Previously described wedge-shaped area of suspected subacute ischemia is more apparent toda y compatible with subacute infarct. This involves the LEFT posterior parietal and posterior superior temporal lobes some of which is in a watershed distribution. Mild associated edema. Mild localized ma ss effect. No significant mass effect or midline shift. No intracranial hemorrhage. No hydrocephalus. Chronic infarct in the RIGHT inferior cerebellum with encephalomalacia. Small chron ic cortical infarct RIGHT frontal lobe laterally with a small amount of encephalomalacia. Mastoid air cells are well aerated. Mild mucosal thickening in the LEFT maxillary sinus the small amount of flui d. Mild mucosal thickening ethmoid air cells. Osteoma LEFT frontal sinus. Normal posterior nasopharyn x. CT/CT head wo con* [id number] IMPRESSION: 1. LEFT posterior parietal superotemporal lobe wedge-shaped infarct is more ap parent today compatible with subacute ischemia. Minimal associated localized ma ss effect. No midline shift or hydrocephalus. Infarct is in a watershed distrib ution. 2. No intracranial hemorrhage. 3. Chronic infarct in the RIGHT inferior cerebellum with encephalomalacia. 4. Small chronic cortical RIGHT frontal lobe laterally with a small amount of encephalomalacia. 5. Tiny chronic lacunar infarct RIGHT caudate. 6. No other significant changes.
[2021-11-12] MEDS: alum-mag-hydroxide-sime 30 mL UDC PO (10:23)
--- NOTE | 2021-11-12 15:19 | PC.NURSE ---
Report called to [facility] Man. Patient's notified of patient transfer. Patient transferred to room 254 bed 1.
[2021-11-12 20:41] LABS: Glucose Point of Care 99 mg/dL (70-110)
[2021-11-12] MEDS: montelukast sodium 10 mg Tablet PO (21:51)
[2021-11-12] MEDS: atorvastatin 40 mg Tablet PO (21:51)
[2021-11-13 00:52] VITALS: BP 157/88; PULSE 61; RESP 18; TEMP 36.8; O2SAT 94
[2021-11-13 06:00] VITALS: PULSE 60
[2021-11-13 06:26] LABS: Glucose Point of Care 99 mg/dL (70-110)
[2021-11-13 07:25] VITALS: BP 153/83; PULSE 60; RESP 17; TEMP 36.9; O2SAT 94
[2021-11-13] MEDS: pregabalin 50 mg Capsule PO (08:33)
[2021-11-13] MEDS: tamsulosin 0.4 mg Capsule PO (08:34)
[2021-11-13] MEDS: famotidine 20 mg Tablet PO (08:34)
[2021-11-13] MEDS: sertraline 100 mg Tablet PO (08:34)
[2021-11-13] MEDS: carvedilol 25 mg Tablet PO (08:34)
[2021-11-13 08:35] VITALS: PULSE 71; RESP 17; O2SAT 96
[2021-11-13] MEDS: sacubitril/valsartan 24-26 mg Tablet 2 EACH PO (08:36)
[2021-11-13] MEDS: clopidogrel 75 mg Tablet PO (09:34)
--- NOTE | 2021-11-13 09:34 | PM.DCS ---
Discharge Providers Date of Admission: 11/11/21 13:49 Date of Discharge: November 13, 2021 Attending Provider at Admission: Elo Obrien MD Attending Provider at Discharge: Joel Obrien MD Primary Care Provider: Gabby Pickens DO Diagnoses at Discharge Discharge Diagnosis (1) CVA (cerebral vascular accident): Status: Acute (2) Cardiomyopathy: Status: Acute (3) Small airways disease: Status: Acute Reason for Visit Reason for Visit: possible stroke Hospital Course Hospital Course Gabriel is a 56-year-old white male who presented to the hospital with aphasia, consistent with a stroke. He received tPA on November 12 with improvement of his symptoms. He initially went to the ICU. Repeat CT scan head demonstrated no bleed. CTA of head and neck demonstrated no flow-limiting stenosis. Pacemaker/defibrillator interrogation demonstrated no atrial fibrillation. Imaging was consistent with CVA, left posterior temporal and parietal occipital junction. Echocardiogram was performed which demonstrated an EF around 40%, improved from previous echo, with no obvious thrombus although it was a poor study. After appropriate interval of holding antiplatelets and anticoagulants following tPA he was initiated on aspirin at slightly over 24 hours, aspirin and Plavix at approximately 48 hours. As he was discharging Lovenox was not initiated on day of discharge as would typically have been done if he has been staying. All therapies were consulted, and it was determined he could benefit from speech therapy at home but had no need for physical therapy or occupational therapy. He will follow-up with neurology in 2 weeks, his primary care provider in 3 to 5 days. Patient and family's questions were answered, regarding the plan which they agreed with. Physical Exam Narrative: General exam no apparent distress Neurologic: Some aphasia noted but no focal weakness Neck is supple no lymphadenopathy thyromegaly Cardiovascular regular rate and rhythm without murmur Lungs clear Abdomen is soft with positive bowel sounds, hernia unchanged Extremities no cyanosis clubbing or edema Discharge Data Studies Completed and Pending Completed Studies During Hospitalization Category Date Time Status CT head wo con* [id number] Routine Cat Scan 11/12/21 09:[address] head wo con* [id number] Stat Cat Scan 11/11/21 08:35 Completed CTA head neck [CT angio headneck* [id number]] Stat Cat Scan 11/11/21 10:59 Completed XR chest 1V portable [id number] Stat Exams 11/11/21 09:10 Completed CV. echo wo/w contrast [id number] Routine Ultrasound 11/11/21 10:19 Completed Radiology Impressions Chest X-Ray 11/11/21 09:10 IMPRESSION: No acute cardiopulmonary abnormality. Head/Neck CTA 11/11/21 10:59 IMPRESSION: Exam is somewhat limited due to beam hardening artifact from body habitus. 1. No significant ICA stenosis bilaterally. 2. Both vertebral arteries are patent. 3. Basilar artery is patent. 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 4. Normal vascularity to the TAMIE and MCA territories bilaterally. No evidence of proximal flow limiting stenosis. 5. Stable area of subtle low-attenuation LEFT posterior temporal lobe appears unchanged suspicious for subacute ischemia but nonspecific. Recommend interval follow-up to assess for change. Slightly decreased vascularity in this area. 6. Evidence of chronic infarct in the RIGHT inferior cerebellum with encephalomalacia. 7. No other suspicious findings. Head CT 11/12/21 09:00 IMPRESSION: 1. LEFT posterior parietal superotemporal lobe wedge-shaped infarct is more apparent today compatible with subacute ischemia. Minimal associated localized mass effect. No midline shift or hydrocephalus. Infarct is in a watershed distribution. 2. No intracranial hemorrhage. 3. Chronic infarct in the RIGHT inferior cerebellum with encephalomalacia. 4. Small chronic cortical RIGHT frontal lobe laterally with a small amount of encephalomalacia. 5. Tiny chronic lacunar infarct RIGHT caudate. 6. No other significant changes. Laboratory Results WBC 9.6 10^3/uL (4.0-10.0) 11/12/21 04:48 RBC 5.26 10^6/uL (4.1-5.3) 11/12/21 04:48 Hgb 14.4 g/dL (11.7-16.6) 11/12/21 04:48 Hct 46.1 % (42.0-52.0) 11/12/21 04:48 MCV 87.6 fl (80-94) 11/12/21 04:48 MCH 27.4 pg (28.0-34.0) L 11/12/21 04:48 MCHC 31.2 g/dL (30.0-36.0) 11/12/21 04:48 RDW 14.2 % (12.1-15.1) 11/12/21 04:48 Plt Count 264 10^3/cmm (130-400) 11/12/21 04:48 MPV 9.9 fL (7.4-10.4) 11/12/21 04:48 Neut % (Auto) 70.5 % 11/12/21 04:48 Lymph % (Auto) 19.3 % 11/12/21 04:48 [place] % (Auto) 8.3 % 11/12/21 04:48 Eos % (Auto) 0.9 % 11/12/21 04:48 Baso % (Auto) 0.6 % 11/12/21 04:48 Neut # (Auto) 6.76 10^3/uL (1.8-7.7) 11/12/21 04:48 Lymph # (Auto) 1.9 10^3/uL (0.8-4.8) 11/12/21 04:48 [place] # (Auto) 0.8 10^3/uL (0.2-0.9) 11/12/21 04:48 Eos # (Auto) 0.1 10^3/uL (0.0-0.8) 11/12/21 04:48 Baso # (Auto) 0.1 10^3/uL (0.0-0.1) 11/12/21 04:48 Nucleated RBC % (auto) 0 % 11/12/21 04:48 Nucleated RBCs # 0.0 /100WBC 11/12/21 04:48 PT 13.20 SECONDS (12.1-14.9) 11/11/21 08:46 INR 0.97 (0.8-1.2) 11/11/21 08:46 APTT 31.4 SECONDS (23.9-36.7) 11/11/21 08:46 Sodium 139 mmol/L (136-145) 11/12/21 04:48 Potassium 4.0 mmol/L (3.5-5.1) 11/12/21 04:48 Chloride 102 mmol/L (98-107) 11/12/21 04:48 Carbon Dioxide 29 mmol/L (22-29) 11/12/21 04:48 Anion Gap 12.0 (5-19) 11/12/21 04:48 BUN 8 mg/dL (6-20) 11/12/21 04:48 Creatinine 0.6 mg/dL (0.7-1.2) L 08/25/22 04:48 GFR Calculation 140.4 mL/min (90-130) H 11/12/21 04:48 Glucose 93 mg/dL (65-115) 11/12/21 04:48 POC Glucose 99 mg/dL (70-110) 11/13/21 06:21 Estimat Average Glucose 123 11/12/21 04:48 Hemoglobin A1c 5.9 % (4.0-6.0) 11/12/21 04:48 Calculated Osmolality 286 mOsm/kg (285-295) 11/12/21 04:48 Calcium 8.8 mg/dL (8.5-10.5) 11/12/21 04:48 Total Bilirubin 0.6 mg/dL (0.15-1.2) 11/12/21 04:48 AST 12 U/L (0-40) 11/12/21 04:48 ALT 13 U/L (0-41) 11/12/21 04:48 Alkaline Phosphatase 104 U/L (40-130) 11/12/21 04:48 Total Protein 7.0 g/dL (6.6-8.7) 11/12/21 04:48 Albumin 3.7 g/dL (3.5-5.2) 11/12/21 04:48 Globulin 3.3 g/dL (1.3-4.6) 11/12/21 04:48 Triglycerides 110 mg/dL (0-150) 11/12/21 04:48 Cholesterol 154 mg/dL (0-200) 11/12/21 04:48 LDL Cholesterol, Calc 103 mg/dL (50-129) 11/12/21 04:48 HDL Cholesterol 29 mg/dL (60-100) L 11/12/21 04:48 LDL/HDL Ratio 3.55 RATIO (0.00-3.22) H 11/12/21 04:48 Cholesterol/HDL Ratio 5.31 mg/dL (1.0-5.00) H 11/12/21 04:48 TSH 1.90 uIU/mL (0.27-4.20) 11/11/21 08:46 Urine Color Yellow (Yellow) 11/11/21 09:00 Urine Appearance Clear (CLEAR) 11/11/21 09:00 Urine pH 6.5 (5-7) 11/11/21 09:00 Ur Specific [place] 1.010 (1.005-1.030) 11/11/21 09:00 Urine Protein Neg (Negative) 11/11/21 09:00 Urine Glucose (UA) Norm (Normal) 11/11/21 09:00 Urine Ketones Negative (Negative) 11/11/21 09:00 Urine Blood Neg (Negative) 11/11/21 09:00 Urine Nitrate Negative (Negative) 11/11/21 09:00 Urine Bilirubin Neg (Negative) 11/11/21 09:00 Urine Urobilinogen Norm mg/dL (Negative) 11/11/21 09:00 Ur Leukocyte Esterase Negative (Negative) 11/11/21 09:00 Urine Opiates Screen Negative ng/mL (Negative) 11/11/21 09:00 Ur Barbiturates Screen Negative ng/mL (Negative) 11/11/21 09:00 Ur Phencyclidine Scrn Negative ng/mL (Negative) 11/11/21 09:00 Ur Amphetamines Screen Negative ng/mL (Negative) 11/11/21 09:00 Phenobarbital 2.4 ug/mL (10-30) L 11/11/21 08:46 U Benzodiazepines Scrn Negative ng/mL (Negative) 11/11/21 09:00 Urine Cocaine Screen Negative ng/mL (Negative) 11/11/21 09:00 U Marijuana (THC) Screen Negative ng/mL (Negative) 11/11/21 09:00 Vitals Last Vital Signs Temp 98.4 F 11/13/21 07:25 Pulse 71 11/13/21 08:35 Resp 17 11/13/21 08:35 BP 153/83 11/13/21 07:25 Pulse Ox 96 11/13/21 08:35 O2 Del Method 11/13/21 08:35 O2 Flow Rate 2 11/12/21 08:36 Discharge Plan Discharge Patient Disposition: Home Health Service Condition: Stable Prescriptions: New Lyrica 50 mg Capsule 50 mg PO BID Qty: 60 0RF atorvastatin 40 mg Tablet 40 mg PO BEDTIME Qty: 30 0RF aspirin 325 mg Tablet,Delayed Release (Dr/Ec) 325 mg PO DAILY Qty: 30 0RF clopidogrel [Plavix] 75 mg tablet 75 mg PO DAILY Qty: 21 0RF Continued Trelegy Ellipta 100-62.5-25 mcg blister with device 1 inh INHALATION DAILY montelukast [Singulair] 10 mg tablet 10 mg PO BEDTIME furosemide [Lasix] 40 mg tablet 40 mg PO DAILY PRN (Reason: edema) Entresto 49-51 mg tablet 1 tab PO BID ondansetron HCl 8 mg tablet 8 mg PO Q8H PRN (Reason: nausea and vomiting) Qty: 10 0RF carvedilol 25 mg tablet 25 mg PO BID potassium chloride 10 mEq capsule, extended release 20 meq PO DAILY PRN (Reason: takes when takes lasix) sertraline 100 mg tablet 100 mg PO DAILY famotidine 20 mg tablet 20 mg PO BID Zyrtec 10 mg Tablet 10 mg PO DAILY tamsulosin 0.4 mg capsule 0.8 mg PO DAILY Discontinued amlodipine 10 mg tablet 10 mg PO DAILY pregabalin 150 mg capsule 150 mg PO BID nystatin 100,000 unit/mL suspension 5 ml PO BID amoxicillin 500 mg tablet 1,000 mg PO BID Discharge Orders: Discharge Order (Routine); Ordered 11/13/21 Ordered By: Joel Obrien Referrals: [facility] [Outside] Kanchan Jackson MD [Physician] - 2 weeks (follow up CVA) Gabby Pickens DO [Primary Care Provider] - 4-7 days Discharge Diet: Cardiac and Diabetic Discharge Activity: Increase activity as tolerated Patient Instructions: Opioid Safety Activity Restrictions/Additional Instructions: Take all medicine as prescribed. Plavix treatment should overlap with aspirin for 3 weeks, then Plavix will likely be discontinued. Ask your neurologist on follow-up. Notify primary care provider or come to the emergency department for any frequent nosebleeds, black or tarry stools, uncontrolled bleeding Follow-up with neurology 2 weeks, primary care provider 3 to 5 days Note that your dose of Lyrica has been reduced, Norvasc has been discontinued Discharge Attestations Time Spent in Discharge Care*: greater than 30 min Quality Metrics Clinical Quality Measures [ Cerebrovascular Accident { Contraindication to Antithrombotic: None; antithrombotic prescribed; Contraindication to Anticoagulation: Other (Not indicated); Contraindication to Statin: None; Statin prescribed; Reason stroke education not provided: Stroke education provided to patient;}] Coding Level of Care Code Acute Chg [facility] note Diagnoses CVA (cerebral vascular accident) I63.9 Cardiomyopathy I42.9 Small airways disease J98.4
[2021-11-13 11:19] VITALS: BP 148/73; PULSE 76; RESP 17; TEMP 36.8; O2SAT 98
== END 2021-11-13 12:49 | disposition home health service (06) | DRG 62 ==
LOC: ER 08:37 → ICUOP 12:03 → ICU 13:04 → MEDSURG 11-12 15:43
PROVIDERS: Admitting Provider Family Medicine; Emergency Provider Family Medicine; PCP Family Medicine; Visit Provider Internal Medicine
DX: I63.512 Cerebral infarction due to unspecified occlusion or stenosis of left middle cerebral artery (principal); I42.9 Cardiomyopathy, unspecified; I50.22 Chronic systolic (congestive) heart failure; Z68.43 Body mass index [BMI] 50.0-59.9, adult; H53.47 Heteronymous bilateral field defects; R47.01 Aphasia; R29.709 NIHSS score 9; Z95.810 Presence of automatic (implantable) cardiac defibrillator; J44.9 Chronic obstructive pulmonary disease, unspecified; N40.0 Benign prostatic hyperplasia without lower urinary tract symptoms; M79.7 Fibromyalgia; K21.9 Gastro-esophageal reflux disease without esophagitis; E66.01 Morbid (severe) obesity due to excess calories; G47.33 Obstructive sleep apnea (adult) (pediatric); Z98.84 Bariatric surgery status; Z87.891 Personal history of nicotine dependence; K42.9 Umbilical hernia without obstruction or gangrene
CPT/HCPCS: 36415; 36416; 70450; 70496; 70498; 71045; 80053; 80061; 80184; 80306; 81003; 82962; 83036; 84443; 85025; 85610; 85730; 92507; 92523; 92526; 92610; 93005; 93306; 94760; 96374; 97116; 97161; 97165; 99291; C8929; J2997; J3490; J7030; Q9956; Q9967

== ENCOUNTER → 2021-11-25 11:59 | Outpatient (BNVA) | payer MEDICARE, SELFPAY | PROVIDERS: PCP Family Medicine; Visit Provider Specialist | DX: I69.320 Aphasia following cerebral infarction (principal); I42.9 Cardiomyopathy, unspecified; F17.200 Nicotine dependence, unspecified, uncomplicated | CPT/HCPCS: 99205; 99215 ==

== ENCOUNTER → 2022-01-07 14:54 | Outpatient (BNVA) | payer MEDICARE, SELFPAY | PROVIDERS: PCP Family Medicine; Visit Provider Specialist | DX: I42.9 Cardiomyopathy, unspecified (principal); Z86.73 Personal history of transient ischemic attack (TIA), and cerebral infarction without residual deficits; G47.33 Obstructive sleep apnea (adult) (pediatric); Z87.891 Personal history of nicotine dependence | CPT/HCPCS: 99214; 99215 ==

== ENCOUNTER 2022-02-12 09:22 | Emergency (ER) | payer MEDICARE, SELFPAY ==
[2022-02-12 09:34] VITALS: BP 175/82; PULSE 81; RESP 17; TEMP 36.4; O2SAT 96; BMI 59.1
--- NOTE | 2022-02-12 09:38 | XRR_ITS ---
PROCEDURE INFORMATION: Exam: XR Chest Exam date and time: 02/12/2022 11:03 AM Age: 56 years old Clinical indication: Pain; Angina pectoris; Additional info: Chest pain TECHNIQUE: Imaging protocol: Radiologic exam of the chest. Views: 1 view. COMPARISON: CR XR chest 1V portable [id number] 11/11/2021 9:14 AM FINDINGS: Lungs: Unremarkable. No consolidation. Pleural spaces: Unremarkable. No pleural effusion. No pneumothorax. Heart/Mediastinum: Unremarkable. No cardiomegaly. Bones/joints: Unremarkable. Cardiac device left anterior chest in good position. Comparison to prior examination similar findings seen XR/XR chest 1V portable [id number] IMPRESSION: No acute findings. Cardiac device left anterior chest in good position.
[2022-02-12 09:39] VITALS: BP 175/129; PULSE 87; RESP 17; O2SAT 94
--- NOTE | 2022-02-12 09:44 | ECG_ITS ---
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 Measurements Intervals [place] Rate: 73 P: 16 MT: 94 QRS: -38 QRSD: 174 T: 136 QT: 455 QTc: 504 Interpretive Statements ELECTRONIC VENTRICULAR PACEMAKER Compared to ECG 11/11/2021 08:33:58 No significant changes Electronically Signed On 02-12-2022 11:09:21 PLASMA PROCESSOR by Kayode Garcia M.D. [id number]
[2022-02-12] MEDS: aspirin 81 mg Chew Tablet 324 MG PO (09:57)
[2022-02-12 10:07] LABS: Basophils # 0.1 10^3/uL (0.0-0.1); Basophils % 0.6 %; Eosinophils # 0.2 10^3/uL (0.0-0.8); Eosinophils % 1.7 %; Hematocrit 48.2 % (42.0-52.0); Hemoglobin 15.3 g/dL (11.7-16.6); Lymphocytes # 1.9 10^3/uL (0.8-4.8); Lymphocytes % 21.3 %; Mean Corpuscular HGB Conc 31.7 g/dL (30.0-36.0); Mean Corpuscular Hemoglobin 28.1 pg (28.0-34.0); Mean Corpuscular Volume 88.6 fl (80-94); Mean Platelet Volume 9.1 fL (7.4-10.4); Monocytes # 0.6 10^3/uL (0.2-0.9); Monocytes % 6.8 %; Neutrophils # 6.24 10^3/uL (1.8-7.7); Neutrophils % 69.3 %; Nucleated Red Blood Cells % 0 %; Platelet Count 272 10^3/cmm (130-400); Red Blood Count 5.44 10^6/uL (4.1-5.3); Red Cell Distribution Width 14.3 % (12.1-15.1)
--- NOTE | 2022-02-12 10:24 | PC.NURSE ---
PT PLACED ON CONTINUOUS NIBP, SPO2, AND CM
[2022-02-12 10:31] LABS: Troponin(5th) Baseline 14 ng/L (0-15)
[2022-02-12 10:34] LABS: Alanine Aminotransferase 14 U/L (0-41); Albumin Level 3.7 g/dL (3.5-5.2); Alkaline Phosphatase 135 U/L (40-130); Anion Gap 13.7 (5-19); Aspartate Amino Transferase 14 U/L (0-40); Blood Urea Nitrogen 8 mg/dL (6-20); Calcium 9.4 mg/dL (8.5-10.5); Carbon Dioxide 26 mmol/L (22-29); Chloride 100 mmol/L (98-107); Globulin 3.7 g/dL (1.3-4.6); Glomerular Filtration Rate 140.4 mL/min (90-130); Glucose 123 mg/dL (65-115); Osmolality Calculated 282 mOsm/kg (285-295); Potassium 3.7 mmol/L (3.5-5.1); Sodium 136 mmol/L (136-145); Total Bilirubin 0.5 mg/dL (0.15-1.2); Total Protein 7.4 g/dL (6.6-8.7)
[2022-02-12 10:39] VITALS: BP 142/89; PULSE 72; RESP 16; O2SAT 95
--- NOTE | 2022-02-12 10:40 | USCV_ITS ---
Gabriel Blair Age: 56 Gender: M : 1965 Exam Date: 02/12/2022 10:56 Ordering Phys: Kalyan Payan DO Technologist: Dede Price [place] [facility] [place]: Pain in Lt calf HISTORY: Pain in Lt calf PROCEDURES: Venous duplex imaging was performed in only the left lower extremity. The following venous structures were evaluated: common femoral vein, profunda vein, proximal portion of the greater saphenous vein, superficial femoral vein, and the popliteal vein. In addition, the posterior tibial and peroneal trunk were evaluated. Serial compression, augmentation maneuvers, and spectral Doppler flow evaluation were performed. The area of pain, directed by Pt was examined FINDINGS: Normal 2-D Doppler and augmentation and compressibility throughout the lower extremity venous structures. Additional imaging through the proximal calf veins also reveals no thrombus. Limited evaluation of the greater saphenous vein is patent with no thrombus. CONCLUSIONS No DVT left lower extremity. Dr. Felecia Lopez DO (Electronically Signed) Final Date: 12 February 2022 11:27 S
--- NOTE | 2022-02-12 10:40 | W.ED.CHESTPA ---
HPI - Chest Pain General: Chief Complaint: Chest Pain Stated Complaint: chest pain Time Seen by Provider: 02/12/22 09:34 Source: patient Mode of arrival: ambulatory History of Present Illness: 56-year-old male presents emergency room with complaint of chest pain. Patient began having chest pain this morning. Pain is on the left side does not radiate anywhere he has some sort of swelling in his lower extremities and also has some left calf pain has not had any particular shortness of breath. He has a known history of coronary disease and previous history of CVA requiring tPA. He is hypertensive on arrival here. He denies any difficulty with fever sweats chills or cough recently no recent upper respiratory infection. No abdominal pain. MD complaint: chest pain Pertinent past history: coronary artery disease Prior episodes: Yes Onset: during rest Pain location: left chest Pain radiation: none Severity: moderate Quality: aching and heaviness Relieving factors: nothing Exacerbating factors: nothing Associated symptoms: Reports leg edema; Deny abdominal pain, diaphoresis, dyspnea, fever(s), nausea, palpitations, sense of impending doom, syncope or vomiting Treatment prior to arrival: none Review of Systems Const: Denies: fever(s), chills, fatigue, malaise or diaphoresis ENMT: Denies: throat pain, ear or mastoid pain, nasal discharge or nasal congestion Card: Denies: palpitations or syncope Resp: Denies: dyspnea GI: Denies: abdominal pain, nausea or vomiting : Denies: flank pain, dysuria, urinary frequency or urinary urgency Skin/Breast: Denies: rash or pruritus PFS ED PFSH: Medical History Cardiomyopathy CHF (congestive heart failure) COPD (chronic obstructive pulmonary disease) Enlarged prostate Fibromyalgia GERD (gastroesophageal reflux disease) Nausea and vomiting Obesity CONNIE (obstructive sleep apnea) Pacemaker Viral syndrome Surgical History H/O hernia repair History of biopsy of temporal artery History of skin surgery History of sleeve gastrectomy History of throat surgery History of tonsillectomy and adenoidectomy Family History Mother CAD (coronary artery disease) Father CAD (coronary artery disease) Other Lepkm-[id number] deficiency Social History Smoking and tobacco status: former smoker Quit status (tobacco): has quit using tobacco Year quit tobacco: 2013 - 2PPD x 30 Years Former quit date comment: Used a non-og vape from 2012 - 2019 Second hand smoke exposure: Yes Alcohol intake: never Lives independently: Yes Household members: spouse Marital status: Current occupational status: disabled History of recent travel: No Current gender identity: Male Physical Exam Const: COMMON NORMALS: no acute distress GENERAL APPEARANCE: cooperative and comfortable NUTRITIONAL APPEARANCE: obese morbidly obese ORIENTATION/CONSCIOUSNESS: Yes awake, Yes oriented to person, Yes oriented to place and Yes oriented to time HENMT: COMMON NORMALS: normocephalic, atraumatic and hearing grossly normal bilaterally HEAD & SCALP: normocephalic and atraumatic Resp: COMMON NORMALS: normal respiratory effort, No retractions, No use of accessory muscles and clear to auscultation bilaterally AUSCULTATION: clear to auscultation bilaterally Cardio: COMMON NORMALS: regular rate, regular rhythm and No murmurs present (Cardio) RATE: regular rate RHYTHM: regular rhythm GI: COMMON NORMALS: Soft to palpation and No hepatosplenomegaly present AUSCULTATION: Yes normoactive bowel sounds PALPATION: Yes Soft to palpation, No Tenderness to palpation present (GI), No Guarding due to palpation present (GI) and Yes No hepatosplenomegaly present Extremity: COMMON NORMALS: normal to inspection, capillary refill normal, no clubbing, cyanosis or edema, no calf tenderness and no pedal edema Neuro: SENSORIUM/ORIENTATION: Yes oriented to person, Yes oriented to place and Yes oriented to time Skin: COMMON NORMALS: no rashes or lesions noted GENERAL SKIN EXAM: no rashes or lesions noted Course Vital Signs: Vital signs: Vital Signs Temperature 97.6 F 02/12/22 09:34 Pulse Rate 68 02/12/22 12:00 Respiratory Rate 14 02/12/22 12:00 Blood Pressure 161/104 02/12/22 12:00 Pulse Oximetry 96 02/12/22 12:00 Oxygen Delivery Me thod 02/12/22 09:34 MDM - Chest Pain Medical Decision Making Atypical chest pain negative cardiac enzymes no acute changes in EKG. We will start him isosorbide mononitrate for his blood pressure and for cardiac benefit we will also have him continue aspirin daily we will set up for outpatient stress testing return if is further pain. EKGs and troponins are unremarkable. Medical Records I reviewed the patient's medical records. Lab Data I reviewed the patient's lab results. 02/12/22 09:53 02/12/22 09:53 Radiology Impressions Chest X-Ray 02/12/22 09:38 IMPRESSION: No acute findings. Cardiac device left anterior chest in good position. Laboratory Results WBC 9.0 10^3/uL (4.0-10.0) 02/12/22 09:53 RBC 5.44 10^6/uL (4.1-5.3) H 02/12/22 09:53 Hgb 15.3 g/dL (11.7-16.6) 02/12/22 09:53 Hct 48.2 % (42.0-52.0) 02/12/22 09:53 MCV 88.6 fl (80-94) 02/12/22 09:53 MCH 28.1 pg (28.0-34.0) 02/12/22 09:53 MCHC 31.7 g/dL (30.0-36.0) 02/12/22 09:53 RDW 14.3 % (12.1-15.1) 02/12/22 09:53 Plt Count 272 10^3/cmm (130-400) 02/12/22 09:53 MPV 9.1 fL (7.4-10.4) 02/12/22 09:53 Neut % (Auto) 69.3 % 02/12/22 09:53 Lymph % (Auto) 21.3 % 02/12/22 09:53 [place] % (Auto) 6.8 % 02/12/22 09:53 Eos % (Auto) 1.7 % 02/12/22 09:53 Baso % (Auto) 0.6 % 02/12/22 09:53 Neut # (Auto) 6.24 10^3/uL (1.8-7.7) 02/12/22 09:53 Lymph # (Auto) 1.9 10^3/uL (0.8-4.8) 02/12/22 09:53 [place] # (Auto) 0.6 10^3/uL (0.2-0.9) 02/12/22 09:53 Eos # (Auto) 0.2 10^3/uL (0.0-0.8) 02/12/22 09:53 Baso # (Auto) 0.1 10^3/uL (0.0-0.1) 02/12/22 09:53 Nucleated RBC % (auto) 0 % 02/12/22 09:53 Nucleated RBCs # 0.0 /100WBC 02/12/22 09:53 Sodium 136 mmol/L (136-145) 02/12/22 09:53 Potassium 3.7 mmol/L (3.5-5.1) 02/12/22 09:53 Chloride 100 mmol/L (98-107) 02/12/22 09:53 Carbon Dioxide 26 mmol/L (22-29) 02/12/22 09:53 Anion Gap 13.7 (5-19) 02/12/22 09:53 BUN 8 mg/dL (6-20) 02/12/22 09:53 Creatinine 0.6 mg/dL (0.7-1.2) L 02/12/22 09:53 GFR Calculation 140.4 mL/min (90-130) H 02/12/22 09:53 Glucose 123 mg/dL (65-115) H 02/12/22 09:53 Calculated Osmolality 282 mOsm/kg (285-295) L 02/12/22 09:53 Calcium 9.4 mg/dL (8.5-10.5) 02/12/22 09:53 Total Bilirubin 0.5 mg/dL (0.15-1.2) 02/12/22 09:53 AST 14 U/L (0-40) 02/12/22 09:53 ALT 14 U/L (0-41) 02/12/22 09:53 Alkaline Phosphatase 135 U/L (40-130) H 02/12/22 09:53 Troponin T Baseline 14 ng/L (0-15) 02/12/22 09:53 Troponin T 120 Minute 15.23 ng/L (0-15) H 02/12/22 11:39 Delta Troponin T 1.23 ABS# (0-10) 02/12/22 11:39 Total Protein 7.4 g/dL (6.6-8.7) 02/12/22 09:53 Albumin 3.7 g/dL (3.5-5.2) 02/12/22 09:53 Globulin 3.7 g/dL (1.3-4.6) 02/12/22 09:53 Discharge Plan Discharge Patient Disposition: Home Clinical Impression: Atypical chest pain, Benign essential HTN Condition: Stable Prescriptions: New isosorbide mononitrate 30 mg tablet extended release 24 hr 30 mg PO DAILY Qty: 30 0RF No Action Trelegy Ellipta 100-62.5-25 mcg blister with device 1 inh INHALATION DAILY montelukast [Singulair] 10 mg tablet 10 mg PO BEDTIME furosemide [Lasix] 40 mg tablet 40 mg PO DAILY PRN (Reason: edema) Entresto 49-51 mg tablet 1 tab PO BID carvedilol 25 mg tablet 25 mg PO BID potassium chloride 10 mEq capsule, extended release 20 meq PO DAILY PRN (Reason: takes when takes lasix) sertraline 100 mg tablet 100 mg PO DAILY cetirizine [Zyrtec] 10 mg Tablet 10 mg PO DAILY tamsulosin 0.4 mg capsule 0.4 mg PO DAILY aspirin 325 mg Tablet,Delayed Release (Dr/Ec) 325 mg PO DAILY Qty: 30 0RF pregabalin [Lyrica] 50 mg Capsule 50 mg PO BID Qty: 60 0RF atorvastatin 40 mg tablet 40 mg PO BEDTIME amitriptyline 25 mg tablet 25 mg PO BEDTIME pantoprazole 40 mg tablet,delayed release (DR/EC) 40 mg PO DAILY Ventolin HFA 90 mcg/actuation Hfa Aerosol Inhaler 2 puff INHALATION QID PRN (Reason: Shortness Of Breath Or Wheezing) Discharge Orders: Discharge ED (Routine); Ordered 02/12/22 Ordered By: Kalyan Payan Referrals: Gabby Pickens DO [Primary Care Provider] - Patient Instructions: Opioid Safety, Pain Management Activity Restrictions/Additional Instructions: You were seen today for chest pain and the discomfort in your leg. EKGs and laboratory test did not show any signs of acute coronary event at this time. Ultrasound of your leg did not show any blood clot. Would recommend that you add isosorbide mononitrate 30 mg daily, and increase your pantoprazole to 1 pill twice daily for 14 days then resume once daily. Follow-up with your primary care doctor within the week to reevaluate your blood pressure. It was noted that your blood pressure was elevated at today's visit. The isosorbide mononitrate will lower the blood pressure and is protective of your heart. Stand Alone Forms: Work/School Release Coding Level of Care Code ED Lockstitch Back Maker for Sue Fwd Exam Detailed
[2022-02-12 11:00] VITALS: BP 154/70; PULSE 82; RESP 14; O2SAT 96
[2022-02-12 12:00] VITALS: BP 161/104; PULSE 68; RESP 14; O2SAT 96
[2022-02-12 12:04] LABS: Troponin 5 2HR 15.23 ng/L (0-15)
[2022-02-12 12:06] LABS: Troponin 5 2HR Delta 1.23 ABS# (0-10)
--- NOTE | 2022-02-19 15:40 | DCPLANNER ---
Addendum entered by Joselyn Ta 05/13/22 13:32: Patient has a stress test scheduled appointment was rescheduled to a later date. Addendum entered by Joselyn Ta 03/19/22 09:58: Patient has a stress test scheduled for Tuesday, April 21, 2022 at 9:45. Centralized scheduling will call patient with appointment information. Original Note: data science and iot manager had message to schedule an outpatient stress test for patient. data science and iot manager faxed signed order to centralized scheduling, who will call patient with appointment information.
== END 2022-02-12 12:38 | disposition home or self-care (01) ==
PROVIDERS: Emergency Provider Family Medicine; PCP Family Medicine
DX: R07.89 Other chest pain (principal); I10 Essential (primary) hypertension; E66.9 Obesity, unspecified; Z68.43 Body mass index [BMI] 50.0-59.9, adult; I50.9 Heart failure, unspecified; Z79.82 Long term (current) use of aspirin; Z95.0 Presence of cardiac pacemaker
CPT/HCPCS: 36415; 71045; 80053; 84484; 85025; 93005; 93971; 99285

== ENCOUNTER 2022-04-02 17:41 | Outpatient (CLI) | payer MEDICARE, SELFPAY ==
--- NOTE | 2022-04-02 17:53 | XR_ITS ---
WS: [id number] CHEST 2 VIEWS HISTORY: POST COVID SYMPTOMS COMPARISON: 02/12/2022 Lungs: RIGHT costophrenic angle is excluded from this examination. Lungs are mildly hyperexpanded. Di ffuse hazy opacifications over both lungs but greatest on the RIGHT. No dense areas of consolidation. Partial obscuration of the LEFT lung due to the cardiac battery pack. Cardiac size: Normal silhouette. Cardiac pacer/defibrillator via the LEFT subclavian. Mediastinum/Aorta: Mild widening of the mediastinum. Bones: As visualized are negative. XR/XR chest 2V* [id number] IMPRESSION: 1. RIGHT costophrenic angle is excluded from the examination. 2. Diffuse hazy opacifications. May be pneumonitis or mild pulmonary congestio n. 3. No dense consolidation.
== END 2022-04-02 17:42 | disposition home or self-care (01) ==
LOC: RAD 17:46
PROVIDERS: PCP Family Medicine; Visit Provider Nurse Practitioner Family
DX: U09.9 Post COVID-19 condition, unspecified (principal); R06.02 Shortness of breath; J41.8 Mixed simple and mucopurulent chronic bronchitis
CPT/HCPCS: 71046

== ENCOUNTER 2023-08-31 23:58 | Emergency (ER) | payer MEDICARE, SELFPAY ==
[2023-09-01] VITALS (7 sets, daily range): BP systolic 104–116; BP diastolic 61–85; PULSE 59–71; RESP 13–20; TEMP 36.7; O2SAT 94–97; BMI 57.7
--- NOTE | 2023-09-01 00:12 | ECG_ITS ---
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 Measurements Intervals [place] Rate: 66 P: 42 [place]: 200 QRS: 39 QRSD: 166 T: 268 QT: 499 QTc: 524 Interpretive Statements ELECTRONIC VENTRICULAR PACEMAKER ABNORMAL RHYTHM ECG Compared to ECG 02/12/2022 09:44:08 No significant changes Electronically Signed On 09-01-2023 21:57:08 CDT by Ji Gooden M.D. [id number]
--- NOTE | 2023-09-01 00:12 | XRR_ITS ---
PROCEDURE INFORMATION: Exam: XR Chest Exam date and time: 09/01/2023 12:21 AM Age: 57 years old Clinical indication: Shortness of breath; Prior surgery; Surgery date: 6+ months; Surgery type: Pacer; Additional info: Chf hypoxia TECHNIQUE: Imaging protocol: Radiologic exam of the chest. Views: 1 view. COMPARISON: CR XR chest 2V* [id number] 04/02/2022 5:55 PM FINDINGS: Tubes, catheters and devices: Stable left pacemaker. Lungs: Unremarkable. No consolidation. Pleural spaces: Unremarkable. No pleural effusion. No pneumothorax. Heart/Mediastinum: Unremarkable. No cardiomegaly. Bones/joints: Unremarkable. XR/XR chest 1V portable [id number] IMPRESSION: No acute findings.
--- NOTE | 2023-09-01 00:16 | ED_ITS ---
HPI - Altered Mental Status 2 General: Chief Complaint: Altered Mental Status Stated Complaint: AMS Time Seen by Provider: 09/01/23 00:11 History of Present Illness: Patient presents to the ER with complaints of just feeling weird. He states having difficulty focusing and having difficulty remembering words other knows he cannot narrow down. Patient is normally on 6 L of oxygen at all times and wears a CPAP at night. Patient denies any chest pain but does have a history of cardiomyopathy, denies nausea vomiting diarrhea constipation fever chills cough cold sore throats frequency pain burning with urination etc. Review of Systems 2 General: Reports: 10 or more systems reviewed and unremarkable except in HPI and below PFSH ED 2 PFSH: Medical History Nausea and vomiting GERD (gastroesophageal reflux disease) Viral syndrome Cardiomyopathy Pacemaker Obesity Fibromyalgia Enlarged prostate COPD (chronic obstructive pulmonary disease) CONNIE (obstructive sleep apnea) CHF (congestive heart failure) Surgical History History of tonsillectomy and adenoidectomy History of throat surgery H/O hernia repair History of sleeve gastrectomy History of biopsy of temporal artery History of skin surgery Family History Mother CAD (coronary artery disease) Father CAD (coronary artery disease) Other Trpsy-[id number] deficiency Social History Smoking and tobacco/nicotine status: former use of tobacco/nicotine Quit status (tobacco/nicotine): has quit using Year quit tobacco: 2012 - PD x 30 Years Former quit date comment: Used a non-og vape from 2012 - 2019 Second hand smoke exposure: Yes Alcohol intake: never Substance/Drug Use: never Lives independently: Yes Household members: spouse Marital status: Current occupational status: disabled Do you think of yourself as: Straight/Heterosexual Current gender identity: Male Physical Exam 2 Const: COMMON NORMALS: no acute distress, average body habitus, patient oriented x3, no limitations, healthy appearing, alert and well nourished HENMT: COMMON NORMALS: normocephalic, atraumatic, hearing grossly normal bilaterally, external ears normal, Normal external nose present, moist oral mucous membranes and oropharynx normal HEAD & SCALP: normocephalic and atraumatic NOSE: Normal external nose present EXTERNAL EAR: Yes external ears normal Eye: COMMON NORMALS: Equal, round and reactive pupils present, EOMs intact bilaterally, conjunctivae normal and no scleral icterus CONJUNCTIVA: Yes conjunctivae normal PUPIL: Yes Equal, round and reactive pupils present Neck/C-Spine: COMMON NORMALS: no JVD Chest: COMMONS NORMALS: normal inspection of the chest and normal palpation of entire chest wall Resp: COMMON NORMALS: normal respiratory effort, No retractions and No use of accessory muscles Cardio: COMMON NORMALS: no JVD, regular rate, regular rhythm, S1 normal heart sound present, S2 normal heart sound present, No gallops present (Cardio), No clicks present (Cardio), No murmurs present (Cardio) and No rub (Cardio) R ATE: regular rate RHYTHM: regular rhythm HEART SOUNDS: S1 normal heart sound present and S2 normal heart sound present GI: COMMON NORMALS: Normal to inspection, nondistended, normoactive bowel sounds present, Soft to palpation, non-tender, No hepatosplenomegaly present and no masses PALPATION: Yes Soft to palpation and Yes No hepatosplenomegaly present Neuro: COMMON NORMALS: patient oriented x3 SENSORIUM/ORIENTATION: Yes alert Course 2 Vital Signs: Vital signs: Vital Signs Temperature 98.1 F 09/01/23 00:10 Pulse Rate 59 L 09/01/23 03:30 Respiratory Rate 17 09/01/23 03:30 Blood Pressure 115/66 09/01/23 03:30 Pulse Oximetry 97 09/01/23 03:30 Oxygen Delivery Me thod Nasal Cannula 09/01/23 03:30 Oxygen Flow Rate 4 09/01/23 03:30 MDM - Altered Mental Status Medical Decision Making Patient lab work that included CBC CMP CRP BNP TSH urinalysis magnesium as well as a chest x-ray and head CT, all of his were essentially benign. Pacemaker interrogated, [employer] rep called back working just fine with no arrhythmias Medical Records I reviewed the patient's medical records. Lab Data I reviewed the patient's lab results. 09/01/23 00:27 09/01/23 00:27 Radiology Impressions Chest X-Ray 09/01/23 00:12 IMPRESSION: No acute findings. Head CT 09/01/23 00:16 IMPRESSION: 1. Stable chronic left temporal lobe infarct with encephalomalacia. Previously this was a recent infarct. 2. Mild cerebral atrophy. 3. Mild calcified intracranial atherosclerotic vessel disease. 4. No acute intracranial findings. Laboratory Results WBC 9.58 10^3/uL (3.29-11.43) 09/01/23 00:27 RBC 5.08 10^6/uL (3.85-5.65) 09/01/23 00:27 Hgb 14.60 g/dL (11.27-16.99) 09/01/23 00:27 Hct 45.2 % (37-53) 09/01/23 00: MCV 89.0 fl (82-101) 09/01/23 00: MCH 28.7 pg (27-33) 09/01/23 00: MCHC 32.3 g/dL (30-55) 09/01/23 00: RDW 13.8 % (12.1-15.1) 09/01/23 00:27 Plt Count 271 10^3/cmm (157-399) 09/01/23 00: MPV 9.5 fL (7.4-10.4) 09/01/23 00:27 Neut % (Auto) 62.6 % 09/01/23 00: Lymph % (Auto) 26.6 % 09/01/23 00:27 [place] % (Auto) 8.9 % 09/01/23 00:27 Eos % (Auto) 1.1 % 09/01/23 00: Baso % (Auto) 0.5 % 09/01/23 00:27 Neut # (Auto) 5.99 10^3/uL (1.8-7.7) 09/01/23 00:27 Lymph # (Auto) 2.6 10^3/uL (0.8-4.8) 09/01/23 00:27 [place] # (Auto) 0.9 10^3/uL (0.2-0.9) 09/01/23 00:27 Eos # (Auto) 0.1 10^3/uL (0.0-0.8) 09/01/23 00:27 Baso # (Auto) 0.1 10^3/uL (0.0-0.1) 09/01/23 00:27 Nucleated RBC % (auto) 0 % 09/01/23 00: Nucleated RBCs # 0.0 /100WBC 09/01/23 00: PT 13.40 SECONDS (12.1-14.9) 09/01/23 00:27 INR 0.99 (0.8-1.2) 09/01/23 00:27 Sodium 139 mmol/L (136-145) 09/01/23 00:27 Potassium 3.9 mmol/L (3.5-5.1) 09/01/23 00:27 Chloride 101 mmol/L (98-107) 09/01/23 00:27 Carbon Dioxide 27 mmol/L (22-29) 09/01/23 00:27 Anion Gap 14.9 (5-19) 09/01/23 00:27 BUN 15 mg/dL (6-20) 09/01/23 00:27 Creatinine 0.8 mg/dL (0.7-1.2) 09/01/23 00:27 GFR Calculation 100.4 mL/min (90-130) 09/01/23 00:27 Glucose 104 mg/dL (65-115) 09/01/23 00:27 Calculated Osmolality 289 mOsm/kg (285-295) 09/01/23 00:27 Calcium 9.2 mg/dL (8.5-10.5) 09/01/23 00:27 Magnesium 2.0 mg/dL (1.7-2.3) 09/01/23 00:27 Total Bilirubin 0.4 mg/dL (0.15-1.2) 09/01/23 00:27 AST 23 U/L (0-40) 09/01/23 00:27 ALT 18 U/L (0-41) 09/01/23 00:27 Alkaline Phosphatase 129 U/L (40-130) 09/01/23 00:27 Troponin T Baseline 21 ng/L (0-15) H 09/01/23 00:27 Troponin T 120 Minute 20.20 ng/L (0-15) H 09/01/23 02:40 Delta Troponin T -0.80 ABS# (0-10) L 09/01/23 02:40 C-Reactive Protein 5.6 mg/L (0.0-4.9) H 09/01/23 00:27 NT-Pro-B Natriuret Pep 268 pg/mL (0-125) H 09/01/23 00:27 Total Protein 6.9 g/dL (6.6-8.7) 09/01/23 00:27 Albumin 3.9 g/dL (3.5-5.2) 09/01/23 00:27 Globulin 3.0 g/dL (1.3-4.6) 09/01/23 00:27 TSH 1.59 uIU/mL (0.27-4.20) 09/01/23 00:27 Urine Color Dark yellow (Yellow) 09/01/23 02:50 Urine Appearance Slightly cloudy (CLEAR) 09/01/23 02:50 Urine pH 5 (5-7) 09/01/23 02:50 Ur Specific Agency 1.015 (1.005-1.030) 09/01/23 02:50 Urine Protein Neg (Negative) 09/01/23 02:50 Urine Glucose (UA) 4+ (Normal) H 09/01/23 02:50 Urine Ketones Negative (Negative) 09/01/23 02:50 Urine Blood Neg (Negative) 09/01/23 02:50 Urine Nitrate Negative (Negative) 09/01/23 02:50 Urine Bilirubin Neg (Negative) 09/01/23 02:50 Urine Urobilinogen 1 mg/dL (Negative) H 09/01/23 02:50 Ur Leukocyte Esterase Negative (Negative) 09/01/23 02:50 Urine RBC None /hpf (0-2) 09/01/23 02:50 Urine WBC 0-4 /hpf (0-5) H 09/01/23 02:50 Ur Squamous Epith Cells 0-4 /hpf (0-5) H 09/01/23 02:50 Amorphous Sediment Not Reportable 09/01/23 02:50 Urine Bacteria None /hpf (NONE) 09/01/23 02:50 Urine Mucus 2+ /hpf 09/01/23 02:50 All radiology interpretation(s) finalized by discharge Discharge Plan Discharge Patient Disposition: Home Clinical Impression: Glucose found in urine on examination COPD (chronic obstructive pulmonary disease) Qualifiers: COPD type: unspecified COPD Qualified Code(s): J44.9 - Chronic obstructive pulmonary disease, unspecified Condition: Stable Prescriptions: No Action Trelegy Ellipta 100-62.5-25 mcg blister with device 1 inh INHALATION DAILY montelukast [Singulair] 10 mg tablet 10 mg PO BEDTIME furosemide [Lasix] 40 mg tablet 40 mg PO DAILY PRN (Reason: edema) Entresto 49-51 mg tablet 1 tab PO BID amitriptyline 25 mg tablet See Rx Instructions .ROUTE .COMPLEX Qty: 30 0RF Dose Instruction: TAKE ONE TABLET BY MOUTH AT BEDTIME Rx Instructions: TAKE ONE TABLET BY MOUTH AT BEDTIME carvedilol 25 mg tablet 25 mg PO BID potassium chloride 10 mEq capsule, extended release 20 meq PO DAILY PRN (Reason: takes when takes lasix) sertraline 100 mg tablet 100 mg PO DAILY cetirizine [Zyrtec] 10 mg Tablet 10 mg PO DAILY tamsulosin 0.4 mg capsule 0.4 mg PO DAILY aspirin 325 mg Tablet,Delayed Release (Dr/Ec) 325 mg PO DAILY Qty: 30 0RF pregabalin [Lyrica] 50 mg Capsule 50 mg PO BID Qty: 60 0RF atorvastatin 40 mg tablet 40 mg PO BEDTIME pantoprazole 40 mg tablet,delayed release (DR/EC) 40 mg PO DAILY Ventolin HFA 90 mcg/actuation Hfa Aerosol Inhaler 2 puff INHALATION QID PRN (Reason: Shortness Of Breath Or Wheezing) isosorbide mononitrate 30 mg tablet extended release 24 hr 30 mg PO DAILY Qty: 30 0RF Discharge Orders: Discharge ED (Routine); Ordered 09/01/23 Ordered By: Jay Laird Referrals: Gabby Pickens DO [Primary Care Provider] - 1 week Patient Instructions: COPD Activity Restrictions/Additional Instructions: Your evaluation in ER did not show any acute causes of your symptoms. The only abnormality was glucose in your urine. You may benefit from seeing your family practice doctor for further evaluation and treatment. Please follow-up with him within the next 7 days. Coding Level of Care Code ED Senior Sous Chef for Sue Lind
--- NOTE | 2023-09-01 00:16 | CTR_ITS ---
PROCEDURE INFORMATION: Exam: CT Head Without Contrast Exam date and time: 09/01/2023 12:46 AM Age: 57 years old Clinical indication: Altered mental status/memory loss; Additional info: AMS, HX of CVA TECHNIQUE: Imaging protocol: Computed tomography of the head without contrast. Radiation optimization: All CT scans at this facility use at least one of these dose optimization techniques: automated exposure control; mA and/or kV adjustment per patient size (includes targeted exams where dose is matched to clinical indication); or iterative reconstruction. COMPARISON: CT head wo con* [id number] 11/12/2021 9:20 AM RADIATION DOSE METRICS: Total DLP (mGy-cm): 1229.6 FINDINGS: Brain: Stable chronic left temporal lobe infarct with encephalomalacia. Previously this was a recent infarct. Mild cerebral atrophy. Cerebral ventricles: No ventriculomegaly. Paranasal sinuses: Visualized sinuses are unremarkable. No fluid levels. Mastoid air cells: Visualized mastoid air cells are well aerated. Bones: Unremarkable. No acute fracture. Soft tissues: Unremarkable. Other findings: Mild calcified intracranial atherosclerotic vessel disease. CT/CT head wo con* [id number] IMPRESSION: 1. Stable chronic left temporal lobe infarct with encephalomalacia. Previously this was a recent infarct. 2. Mild cerebral atrophy. 3. Mild calcified intracranial atherosclerotic vessel disease. 4. No acute intracranial findings.
[2023-09-01 00:40] LABS: Basophils # 0.1 10^3/uL (0.0-0.1); Basophils % 0.5 %; Eosinophils # 0.1 10^3/uL (0.0-0.8); Eosinophils % 1.1 %; Hematocrit 45.2 % (37-53); Lymphocytes # 2.6 10^3/uL (0.8-4.8); Lymphocytes % 26.6 %; Mean Corpuscular HGB Conc 32.3 g/dL (30-55); Mean Corpuscular Hemoglobin 28.7 pg (27-33); Mean Platelet Volume 9.5 fL (7.4-10.4); Monocytes # 0.9 10^3/uL (0.2-0.9); Monocytes % 8.9 %; Neutrophils # 5.99 10^3/uL (1.8-7.7); Neutrophils % 62.6 %; Nucleated Red Blood Cells % 0 %; Platelet Count 271 10^3/cmm (157-399); Red Blood Count 5.08 10^6/uL (3.85-5.65); Red Cell Distribution Width 13.8 % (12.1-15.1); White Blood Count 9.58 10^3/uL (3.29-11.43)
[2023-09-01 00:48] LABS: INR 0.99 (0.8-1.2)
[2023-09-01 01:00] LABS: Troponin(5th) Baseline 21 ng/L (0-15)
[2023-09-01 01:10] LABS: Alanine Aminotransferase 18 U/L (0-41); Albumin Level 3.9 g/dL (3.5-5.2); Alkaline Phosphatase 129 U/L (40-130); Anion Gap 14.9 (5-19); Aspartate Amino Transferase 23 U/L (0-40); Blood Urea Nitrogen 15 mg/dL (6-20); C Reactive Protein 5.6 mg/L (0.0-4.9); Calcium 9.2 mg/dL (8.5-10.5); Carbon Dioxide 27 mmol/L (22-29); Chloride 101 mmol/L (98-107); Glomerular Filtration Rate 100.4 mL/min (90-130); Glucose 104 mg/dL (65-115); NT Pro B Type Natriuretic Pept 268 pg/mL (0-125); Osmolality Calculated 289 mOsm/kg (285-295); Potassium 3.9 mmol/L (3.5-5.1); Sodium 139 mmol/L (136-145); Thyroid Stimulating Hormone 1.59 uIU/mL (0.27-4.20); Total Bilirubin 0.4 mg/dL (0.15-1.2); Total Protein 6.9 g/dL (6.6-8.7)
--- NOTE | 2023-09-01 02:12 | ECG_ITS ---
[facility] Test Date: 2023-09-01 Pat Name: Gabriel Blair Department: Room: Gender: Male [employer]: : 1965 Requested By: Jay Laird Order Number: [id number] Jenn MD: Ji Gooden M.D. Measurements Intervals [place] Rate: 59 P: 85 MI: 203 QRS: 35 QRSD: 163 T: 269 QT: 529 QTc: 527 Interpretive Statements ELECTRONIC ATRIAL PACEMAKER ELECTRONIC VENTRICULAR PACEMAKER ABNORMAL RHYTHM ECG Compared to ECG 02/12/2022 09:44:08 No significant changes Electronically Signed On 09-01-2023 22:08:53 CDT by Ji Gooden M.D. [email or web address] [facility] [id number]
[2023-09-01 03:03] LABS: Add Urine Microscopic? YES; Bilirubin Urine Neg (Negative); Blood Urine Neg (Negative); Glucose Urine UA 4+ (Normal); Ketones Urine Negative (Negative); Leukocyte Esterase Urine Negative (Negative); Nitrate Urine Negative (Negative); Protein Urine Neg (Negative); Specific Gravity, Urine 1.015 (1.005-1.030); Urine Appearance Slightly Cloudy (CLEAR); Urine Color Dark Yellow (Yellow); Urobilinogen Urine 1 mg/dL (Negative); pH Urine 5 (5-7)
[2023-09-01 03:04] LABS: Add Urine Culture? No; Mucus Urine 2+ /hpf; Squamous Epithelial Cell Urine 0-4 /hpf (0-5); WBC Urine 0-4 /hpf (0-5)
== END 2023-09-01 03:42 | disposition home or self-care (01) ==
PROVIDERS: Emergency Provider Emergency Medicine; PCP Family Medicine
DX: J44.9 Chronic obstructive pulmonary disease, unspecified (principal); R81 Glycosuria; Z79.82 Long term (current) use of aspirin; Z87.891 Personal history of nicotine dependence; I42.9 Cardiomyopathy, unspecified; Z95.0 Presence of cardiac pacemaker; I50.9 Heart failure, unspecified
CPT/HCPCS: 36415; 70450; 71045; 80053; 81001; 83735; 83880; 84443; 84484; 85025; 85610; 86140; 93005; 99285

== ENCOUNTER → 2023-09-09 09:15 | Outpatient (BNVA) | payer MEDICARE, SELFPAY | PROVIDERS: PCP Family Medicine; Visit Provider Specialist | DX: I63.512 Cerebral infarction due to unspecified occlusion or stenosis of left middle cerebral artery; I42.9 Cardiomyopathy, unspecified; F17.200 Nicotine dependence, unspecified, uncomplicated; C32.9 Malignant neoplasm of larynx, unspecified; Z14.8 Genetic carrier of other disease; G43.019 Migraine without aura, intractable, without status migrainosus | CPT/HCPCS: 99214; 99215 ==

== ENCOUNTER → 2023-10-27 11:30 | Outpatient (BNVA) | payer MEDICARE, SELFPAY | PROVIDERS: PCP Family Medicine; Visit Provider Specialist | DX: I63.9 Cerebral infarction, unspecified (principal); G43.019 Migraine without aura, intractable, without status migrainosus; R56.9 Unspecified convulsions | CPT/HCPCS: 95816 ==

== ENCOUNTER → 2023-12-16 14:23 | Outpatient (BNVA) | payer MEDICARE, SELFPAY | PROVIDERS: PCP Family Medicine; Visit Provider Specialist | DX: I63.512 Cerebral infarction due to unspecified occlusion or stenosis of left middle cerebral artery; I42.9 Cardiomyopathy, unspecified; C32.9 Malignant neoplasm of larynx, unspecified; Z14.8 Genetic carrier of other disease; G43.019 Migraine without aura, intractable, without status migrainosus; F17.210 Nicotine dependence, cigarettes, uncomplicated; Z71.6 Tobacco abuse counseling | CPT/HCPCS: 99214 ==

== ENCOUNTER 2024-01-25 11:53 | Outpatient (CLI) | payer MEDICARE, SELFPAY ==
--- NOTE | 2024-01-25 12:30 | CT_ITS ---
WS: [id number] CTA HEAD AND NECK TECHNIQUE: Contrast enhanced CTA of the head and neck with coronal and sagittal reformatted images an d maximum intensity projection (MIP) images. NASCET criteria utilized. CLINICAL INFORMATION: I63.9 - Cerebral infarction, unspecified COMPARISON: 2021 DLP: 1465.[address] scans at [facility] use at least one of these dose optimization techniques: automated e xposure control; mA and/or kV adjustment per patient size (includes targeted exams where dose is matc hed to clinical indication); or iterative reconstruction. FINDINGS: Stable chronic LEFT temporoparietal infarct with encephalomalacia. Vascular calcification. Chronic infarction RIGHT cerebellum with encephalomalacia. Small chronic punctate infarcts LEFT cereb ellum. Chronic infarct in the RIGHT frontal lobe laterally near the vertex. No evidence of intracrani al hemorrhage. Mild mucosal thickening in the paranasal sinuses. Calcified osteoma LEFT frontoethmoid al recess. Mild mucosal thickening ethmoid air cells. Mastoid air cells are well aerated. Well-circumscribed enhancing lesion in the inferomedial LEFT orbit interposed between the inferior re ctus and medial rectus measuring 1.9 x 1.5 cm. This appears stable since 2021 but seen to better adva ntage today with CTA protocol. Differential considerations include hemangioma, venous varix, pseudotu mor and schwannoma. Recommend ophthalmology consultation. This slightly abuts the traversing optic ne rve. Emphysematous changes in the lung apices. Parotid glands are normal. Normal submandibular glands. RIGHT: RIGHT common carotid artery is patent. No significant RIGHT ICA stenosis. RIGHT ICA is patent to the skull base. LEFT: LEFT common carotid artery is patent. Mild atheromatous plaque LEFT carotid bulb extending into the ICA. No significant LEFT ICA stenosis. LEFT ICA is patent to the skull base. INTRACRANIAL CTA: Codominant and patent vertebral arteries bilaterally. Proximal basilar artery is patent. Normal vascu larity to the [employer] territory bilaterally. Both ICAs are patent at the skull base. Small RIGHT A1 segment. Normal vascularity to the TAMIE and MCA territories bilaterally. No evidence of proximal flow-limiting stenosis. CT/CT angio headneck* [id number] IMPRESSION: Exam is somewhat limited in the lower neck due to beam hardening ar tifact from shoulders 1. No significant cervical ICA stenosis. 2. Codominant and patent vertebral arteries bilaterally. 3. No proximal flow-limiting intracranial stenosis. 4. Well-circumscribed LEFT orbit intraconal ovoid lesion detailed above. Recom mend ophthalmology consultation.
[2024-01-25] MEDS: iohexol 350 mg/mL 500 mL Btl (per mL) IV (12:56)
== END 2024-01-25 11:54 | disposition home or self-care (01) ==
PROVIDERS: PCP Family Medicine; Visit Provider Specialist
DX: I63.9 Cerebral infarction, unspecified (principal); I63.512 Cerebral infarction due to unspecified occlusion or stenosis of left middle cerebral artery; I42.9 Cardiomyopathy, unspecified; H05.812 Cyst of left orbit; D16.4 Benign neoplasm of bones of skull and face; G93.49 Other encephalopathy
CPT/HCPCS: 70496; 70498

== ENCOUNTER → 2024-04-17 13:35 | Outpatient (BNVA) | payer MEDICARE, SELFPAY | PROVIDERS: PCP Family Medicine; Visit Provider Specialist | DX: I63.512 Cerebral infarction due to unspecified occlusion or stenosis of left middle cerebral artery; I42.9 Cardiomyopathy, unspecified; R41.3 Other amnesia | CPT/HCPCS: 96116; 99214 ==

== ENCOUNTER → 2024-07-19 14:53 | Outpatient (BNVA) | payer MEDICARE, SELFPAY | PROVIDERS: PCP Family Medicine; Visit Provider Specialist | DX: I63.9 Cerebral infarction, unspecified (principal); I63.512 Cerebral infarction due to unspecified occlusion or stenosis of left middle cerebral artery; I42.9 Cardiomyopathy, unspecified; F17.200 Nicotine dependence, unspecified, uncomplicated; C32.9 Malignant neoplasm of larynx, unspecified; Z14.8 Genetic carrier of other disease; G43.711 Chronic migraine without aura, intractable, with status migrainosus | CPT/HCPCS: 99214 ==

== ENCOUNTER → 2024-12-18 09:26 | Outpatient (BNVA) | payer MEDICARE, SELFPAY | PROVIDERS: PCP Family Medicine; Visit Provider Podiatrist Foot & Ankle Surgery | DX: M79.671 Pain in right foot (principal); Q82.8 Other specified congenital malformations of skin; M77.51 Other enthesopathy of right foot and ankle | CPT/HCPCS: 17110; 73630; 99203 ==

== ENCOUNTER → 2025-03-19 13:40 | Outpatient (BNVA) | payer MEDICARE, SELFPAY | PROVIDERS: PCP Family Medicine; Visit Provider Podiatrist Foot & Ankle Surgery | DX: Q82.8 Other specified congenital malformations of skin (principal); M77.51 Other enthesopathy of right foot and ankle | CPT/HCPCS: 17110; 99213 ==